=== PATIENT | male | born 1970 | race African-American/Black ===

== ENCOUNTER 2019-02-27 11:48 | Inpatient (IN) | payer MEDICAID ==
[~2019-02-27] VITALS: Ht 203.2 cm; Wt 117.9 kg
--- NOTE | 2019-02-27 12:24 | Emergency Room Report ---
History of Present Illness General Chief Complaint: Skin Rash/Abscess Source: Patient Present Illness HPI 48-year-old male presents to the emergency c/o progressive ulceration with 8/10 in severity pain of the left calf x 2 months. pt. reports increased erythema, warmth, and oozing x 2 weeks. he reports chills x 2 days denies measured fevers. 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 Denies hx of immune compromise. He reports having similar wound of lesser extent in the past which required specialized treatment at a amputation prevention center. He reports previous wound was in the same location. Denies trauma or fall. Denies recent travel. He has been only applying Neosporin without relief. He went to his PCP for eval and was sent to ED. Has not been on any oral abx. NO modifying factors at this time. Pt. is ambulatory. Allergies: Coded Allergies: No Known Allergies (Unverified , 02/27/19) Patient History Past Medical History: see triage record Past Surgical History: none Pertinent Family History: none Reviewed Nursing Documentation: PMH: Agreed; PSxH: Agreed Nursing Documentation-PMH Past Medical History: No History, Except For Review of Systems All Other Systems: negative except mentioned in HPI Physical Exam Vital Signs Date Time Temp Pulse Resp B/P (MAP) Pulse Ox O2 Delivery O2 Flow Rate FiO2 02/27/19 12:01 98.2 89 16 128/84 (99) 96 Room Air Sp02 EP Interpretation: reviewed, normal General Appearance: no apparent distress, alert, GCS 15, non-toxic Head: normocephalic, atraumatic Eyes: bilateral eye normal inspection, bilateral eye PERRL ENT: hearing grossly normal, normal voice Neck: full range of motion Respiratory: lungs clear, normal breath sounds, speaking full sentences Cardiovascular #1: regular rate, rhythm, edema - bilateral calves Gastrointestinal: normal bowel sounds, non tender, soft Rectal: deferred Genitourinary: normal inspection Musculoskeletal: back normal, gait/station normal, normal range of motion, tender - TTP LLE, ulcerated wound with purulent d/c and crusting noted on the medial left calf. 3in X 2 in in size Neurologic: alert, oriented x3, responsive, motor strength/tone normal, sensory intact, speech normal, grossly normal Psychiatric: judgement/insight normal Skin: no rash, warm/dry, well hydrated, other - ulcerated wound with purulent d /c and crusting noted on the medial left calf. 3in X 2 in in size. Surrounding erythema and warmth as well. Lymphatic: no adenopathy Medical Decision Making PA Attestation Dr. Boone is my supervising physician whom pt. management has been discussed with. Diagnostic Impression: Primary Impression: Cellulitis Qualified Codes: L03.90 - Cellulitis, unspecified ER Course 48-year-old male presents to the emergency c/o progressive ulceration with 8/10 in severity pain of the left calf x 2 months. pt. reports increased erythema, warmth, and oozing x 2 weeks. he reports chills x 2 days denies measured fevers. 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 Denies hx of immune compromise. He reports having similar wound of lesser extent in the past which required specialized treatment at a amputation prevention center. He reports previous wound was in the same location. Denies trauma or fall. Denies recent travel. He has been only applying Neosporin without relief. He went to his PCP for eval. and was sent to ED. Has not been on any oral abx. NO modifying factors at this time. Pt. is ambulatory. Ddx considered but are not limited to cellulitis, necrotizing fasciitis, Pseudomonal infection, osteomyelitis, fracture, d/L, venous stasis ulcer just to name a few. Vital signs: are WNL, pt. is afebrile H&PE are most consistent with progressive and extensive LE ulcer with secondary cellulitis and suspicion for pseudomonas presence. ORDERS: -CBC:unremarkable -CMP:unremarkable -Lactic Acid:WNL -Blood Cultures: Pending -Wound Culture: Pending -X-ray Tib/Fib:NO SubQ Gas noted. ED INTERVENTIONS: -1 liter NS bolus - 1.75gm Vancomycin IV - Zosyn IV DISPOSITION: at this time pt. will be admitted to Dr. Apple for cellulitis and ulcerative wound of the LLE Dr. Apple agreed to admit the pt. and to continue pt. care management. Labs Test 02/27/19 12:40 White Blood Count 7.0 K/UL (4.8-10.8) Red Blood Count 5.17 M/UL (4.70-6.10) Hemoglobin 14.2 G/DL (14.2-18.0) Hematocrit 44.2 % (42.0-52.0) Mean Corpuscular Volume 86 FL (80-99) Mean Corpuscular Hemoglobin 27.5 PG (27.0-31.0) Mean Corpuscular Hemoglobin Concent 32.1 G/DL (32.0-36.0) Red Cell Distribution Width 12.4 % (11.6-14.8) Platelet Count 285 K/UL (150-450) Mean Platelet Volume 7.6 FL (6.5-10.1) Neutrophils (%) (Auto) 54.0 % (45.0-75.0) Lymphocytes (%) (Auto) 29.8 % (20.0-45.0) Monocytes (%) (Auto) 8.3 % (1.0-10.0) Eosinophils (%) (Auto) 6.8 % (0.0-3.0) Basophils (%) (Auto) 1.2 % (0.0-2.0) Sodium Level 139 MMOL/L (136-145) Potassium Level 4.7 MMOL/L (3.5-5.1) Chloride Level 103 MMOL/L (98-107) Carbon Dioxide Level 30 MMOL/L (21-32) Anion Gap 7 mmol/L (5-15) Blood Urea Nitrogen 17 mg/dL (7-18) Creatinine 1.4 MG/DL (0.55-1.30) Estimat Glomerular Filtration Rate > 60 mL/min (>60) Glucose Level 113 MG/DL (74-106) Lactic Acid Level 0.80 mmol/L (0.4-2.0) Calcium Level 9.2 MG/DL (8.5-10.1) Total Bilirubin 0.6 MG/DL (0.2-1.0) Aspartate Amino Transf (AST/SGOT) 21 U/L (15-37) Alanine Aminotransferase (ALT/SGPT) 23 U/L (12-78) Alkaline Phosphatase 89 U/L (46-116) Total Protein 8.4 G/DL (6.4-8.2) Albumin 4.1 G/DL (3.4-5.0) Globulin 4.3 g/dL Albumin/Globulin Ratio 1.0 (1.0-2.7) Other X-Ray Diagnostic Results Other X-Ray Diagnostic Results : X-Ray ordered: Left Tib/Fib # of Views/Limited Vs Complete: 2 View Indication: Pain EP Interpretation: Yes PA Xray: Interpretation reviewed, by supervising MD, and agrees with findings. Interpretation: no dislocation, no soft tissue swelling, no fractures, other - no SubQ gas Impression: No acute disease Electronically Signed by: Montserrat Campbell PA-C Last Vital Signs Date Time Temp Pulse Resp B/P (MAP) Pulse Ox O2 Delivery O2 Flow Rate FiO2 02/27/19 12:01 98.2 89 16 128/84 (99) 96 Room Air Status: unchanged Disposition: ADMITTED INPATIENT Condition: Serious Montserrat Campbell Feb 27, 2019 12:24
[2019-02-27] MEDS ORDERED: Vancomycin 1.5 GM in NS 275 ML IVPB ONE (12:30)
[2019-02-27] MEDS ORDERED: Piperacillin/Tazobactam 3.375 GM in NS 110 ML IVPB ONE (12:30)
--- NOTE | 2019-02-27 12:30 | NUR ---
came to er complaints of infection on left lower leg x 2 months denies any injury . iv started in right hand venous blood send to lab
[2019-02-27 13:02] VITALS: BP 130/80
[2019-02-27 13:05] LABS: BASOPHILS % (AUTO) 1.2 % (0.0-2.0); EOSINOPHILS % (AUTO) 6.8 % (0.0-3.0); HEMATOCRIT 44.2 % (42.0-52.0); HEMOGLOBIN 14.2 G/DL (14.2-18.0); LYMPHOCYTES % (AUTO) 29.8 % (20.0-45.0); MEAN CORPUSCULAR VOLUME 86 FL (80-99); MONOCYTES % (AUTO) 8.3 % (1.0-10.0); PLATELET COUNT 285 K/UL (150-450); RED BLOOD COUNT 5.17 M/UL (4.70-6.10); RED CELL DISTRIBUTION WIDTH 12.4 % (11.6-14.8)
[2019-02-27 13:23] LABS: ANION GAP 7 mmol/L (5-15); BLOOD UREA NITROGEN 17 mg/dL (7-18); CALCIUM 9.2 MG/DL (8.5-10.1); CARBON DIOXIDE 30 MMOL/L (21-32); CHLORIDE 103 MMOL/L (98-107); CREATININE 1.4 MG/DL (0.55-1.30); POTASSIUM 4.7 MMOL/L (3.5-5.1); SODIUM 139 MMOL/L (136-145)
[2019-02-27 13:28] LABS: ALANINE AMINOTRANSFERASE 23 U/L (12-78); ALBUMIN 4.1 G/DL (3.4-5.0); ALKALINE PHOSPHATASE 89 U/L (46-116); ASPARTATE AMINO TRANSFERASE 21 U/L (15-37); BILIRUBIN,TOTAL 0.6 MG/DL (0.2-1.0)
--- NOTE | 2019-02-27 13:36 | NUR ---
ED Nurse Note: pt moved from RME to bed 4 . spoke with casework specialist from [facility]. awaiting doctor to doctor. will monitor.
--- NOTE | 2019-02-27 14:07 | Diagnostic Imaging Report ---
Indication: Leg pain Technique: XRAY Leg Lower Tib Fib 2v L Comparison: None FINDINGS/IMPRESSION: Bone mineralization within normal limits. No acute fracture identified. Partially imaged knee and ankle joints are maintained. There are degenerative changes of the knee joint with small osteophytes. No significant suprapatellar joint effusion. No radiopaque foreign body. Questioned soft tissue irregularity involving the medial leg. Correlation with physical exam recommended.
[2019-02-27 15:00] VITALS: BP 141/92
[2019-02-27] MEDS ORDERED: Nitroglycerin Subl 0.4mg tab SL PRN (16:00)
[2019-02-27] MEDS ORDERED: Miralax 17gm pkt ORAL PRN (16:00)
[2019-02-27] MEDS ORDERED: Albuterol/Ipratropium 3ml neb HHN PRN (16:00)
[2019-02-27 17:00] VITALS: BP 145/97
[2019-02-27] MEDS ORDERED: AMBIEN10 M1 ORAL (17:15)
[2019-02-27] MEDS ORDERED: LISINOPRIL2.5 MG ORAL (17:15)
[2019-02-27] MEDS ORDERED: HALOPERIDOL1 MG ORAL (17:15)
[2019-02-27] MEDS ORDERED: FAMOTIDINE20 MG ORAL (17:15)
[2019-02-27] MEDS ORDERED: ATORVASTATIN CA20 MG ORAL (17:15)
[2019-02-27] MEDS ORDERED: MIRTAZAPINE15 MG ORAL (17:15)
[2019-02-27 18:45] VITALS: BP 157/106
--- NOTE | 2019-02-27 19:18 | NUR ---
NURSE NOTES: Received pt from HOSPITAL PERSONNEL DIRECTORMAGDALENA RODRIGUEZ at 1845. Pt is alert and orient x4. pt is in RA, no SOB or acute respiratory distress noted. pt has intact iv access RAC 22G SL. Pt has wound on L LEG. pt is in pain 5/10 and refuses any pain meds at this moment. all belongings checked with pt. all needs attended, bed is locked and is in the lowest position. call light within easy reach. will continue to monitor. Report given to MAGDALENA NO to do ADMISSION and do body check.
[2019-02-27 20:00] VITALS: BP 169/96
[2019-02-27] MEDS: Morphine Sulfate 2mg/ml Inj(IV/IM USE ONLY) IVP PRN (20:24)
[2019-02-27] MEDS: Heparin 5000 units/ml inj SUBQ SCH (20:28)
--- NOTE | 2019-02-27 20:45 | NUR ---
NURSE NOTES: PATIENT IN BED, AWAKE, ALERT, VERBALLY RESPONSIVE. IV IN PLACE PATENT. SKIN ASSESSMENT DONE, OPEN WOUND ON LEFT LEG, WCP TAKEN, AND DRESSING DONE. NO S/S DISTRESS NOTED. BED IN LOWEST POSITION, CALL LIGHT WITHIN REACH, WILL CONTINUE TO MONITOR.
[2019-02-27 21:00] VITALS: BP 143/88
[2019-02-27] MEDS: Cefepime HCl 2 GM in D5W 110 ML IV SCH (21:18)
--- NOTE | 2019-02-27 21:48 | NUR ---
NURSE NOTES: CLARIFIED WITH DR. WOO REGARDING STAT VENOUS DUPLEX ORDER, STATED ORDER DOES NOT NEED TO BE STAT. ORDER CHANGED TO ROUTINE INSTEAD. CHARGE NURSE AWARE.
--- NOTE | 2019-02-27 22:16 | NUR ---
NURSE NOTES: PATIENT PUT KEYS AND WALLET - $15 [employer], ID, SS CARD, AND VISA CARD IN [facility]OSPITAL SAFE. WITNESSED BY IGOR, DIGITAL ACCOUNT MANAGER AND SECURITY.
[2019-02-27] MEDS: Vancomycin 1 GM in D5W 275 ML IVPB SCH (22:30)
[2019-02-28 00:19] VITALS: BP 129/92
[2019-02-28] MEDS: Morphine Sulfate 2mg/ml Inj(IV/IM USE ONLY) IVP PRN (02:38)
[2019-02-28 04:51] VITALS: BP 139/91
[2019-02-28] MEDS: Vancomycin 1 GM in D5W 275 ML IVPB SCH ×3 (05:56→21:58)
[2019-02-28 06:46] LABS: BASOPHILS % (AUTO) 1.2 % (0.0-2.0); EOSINOPHILS % (AUTO) 7.8 % (0.0-3.0); HEMATOCRIT 40.3 % (42.0-52.0); HEMOGLOBIN 12.9 G/DL (14.2-18.0); LYMPHOCYTES % (AUTO) 37.6 % (20.0-45.0); MEAN CORPUSCULAR VOLUME 86 FL (80-99); MONOCYTES % (AUTO) 9.1 % (1.0-10.0); NEUTROPHILS % (AUTO) 44.4 % (45.0-75.0); PLATELET COUNT 252 K/UL (150-450); RED BLOOD COUNT 4.68 M/UL (4.70-6.10); RED CELL DISTRIBUTION WIDTH 12.8 % (11.6-14.8); WHITE BLOOD COUNT 5.1 K/UL (4.8-10.8)
--- NOTE | 2019-02-28 07:21 | NUR ---
HAND-OFF: Report given to THERON HOUSTON RN.
--- NOTE | 2019-02-28 07:22 | NUR ---
NURSE NOTES: Patient received resting in bed, watching television. Alert and oriented, responds appropriately. Breathing on room air. Denies pain or SOB at this time. IV site noted on right arm. Bed in lowest position, call light placed within reach. Will continue to monitor.
[2019-02-28 07:47] LABS: ALANINE AMINOTRANSFERASE 21 U/L (12-78); ALBUMIN 3.5 G/DL (3.4-5.0); ALBUMIN/GLOBULIN RATIO 0.9 (1.0-2.7); ALKALINE PHOSPHATASE 74 U/L (46-116); ANION GAP 6 mmol/L (5-15); ASPARTATE AMINO TRANSFERASE 20 U/L (15-37); BILIRUBIN,TOTAL 0.4 MG/DL (0.2-1.0); BLOOD UREA NITROGEN 15 mg/dL (7-18); CALCIUM 8.7 MG/DL (8.5-10.1); CARBON DIOXIDE 28 MMOL/L (21-32); CHLORIDE 106 MMOL/L (98-107); CREATININE 1.5 MG/DL (0.55-1.30); POTASSIUM 4.3 MMOL/L (3.5-5.1); SODIUM 140 MMOL/L (136-145)
[2019-02-28 08:00] VITALS: BP 150/95
[2019-02-28] MEDS: Cefepime HCl 2 GM in D5W 110 ML IV SCH ×2 (08:41→20:33)
[2019-02-28] MEDS: Heparin 5000 units/ml inj SUBQ SCH ×2 (08:58→20:32)
--- NOTE | 2019-02-28 11:35 | Consultation ---
History of Present Illness General Date patient seen: Feb 28, 2019 Chief Complaint: Skin Rash/Abscess Present Illness HPI 48 y/o M with hx of b/l DVT of LE on Xarelto presents to ED on 02/27 Left calf pain and worsening ulcer for 2months. Patient had increased erythema, warmth and oozing for 2 weeks. +Chills. Denied trauma/fall, recent travel. Allergies: Coded Allergies: No Known Allergies (Unverified , 02/27/19) Medication History Scheduled Atorvastatin Calcium* (Atorvastatin Calcium*), 20 MG ORAL BEDTIME, (Reported) Famotidine (Famotidine), 20 MG ORAL DAILY, (Reported) Haloperidol* (Haldol*), 5 MG ORAL DAILY, (Reported) Lisinopril* (Lisinopril*), 5 MG ORAL DAILY, (Reported) Mirtazapine* (Remeron*), 15 MG ORAL BEDTIME, (Reported) Scheduled PRN Zolpidem Tartrate* (Ambien*), 10 MG ORAL HS PRN for Insomnia, (Reported) Patient History Healthcare decision maker Resuscitation status Advanced Directive on File Patient History Narrative Pmhx: as above Shx: reviewed Fhx: non contributory Physical Exam Physical Exam Narrative General Appearance: no apparent distress, alert, GCS 15, non-toxic Head: normocephalic, atraumatic Eyes: bilateral eye normal inspection, bilateral eye PERRL ENT: hearing grossly normal, normal voice Neck: full range of motion Respiratory: lungs clear, normal breath sounds, speaking full sentences Cardiovascular: regular rate, rhythm, edema - bilateral calves Gastrointestinal: normal bowel sounds, non tender, soft Rectal: deferred Genitourinary: normal inspection Musculoskeletal: back normal, gait/station normal, normal range of motion, tender - TTP LLE, ulcerated wound with purulent d/c and crusting noted on the medial left calf. 3in X 2 in in size Neurologic: alert, oriented x3, responsive, motor strength/tone normal, sensory intact, speech normal, grossly normal Psychiatric: judgement/insight normal Skin: no rash, warm/dry, well hydrated, other - ulcerated wound with purulent d /c and crusting noted on the medial left calf. 3in X 2 in in size. Surrounding erythema and warmth as well. Lymphatic: no adenopathy Last 24 Hour Vital Signs Date Time Temp Pulse Resp B/P (MAP) Pulse Ox O2 Delivery O2 Flow Rate FiO2 02/28/19 09:00 Room Air 02/28/19 08:05 72 18 97 Room Air 21 02/28/19 08:00 98.7 84 20 150/95 (113) 99 02/28/19 04:51 98.1 59 18 139/91 (107) 97 02/28/19 03:08 98.2 02/28/19 00:19 98.2 66 19 129/92 (104) 96 02/27/19 23:31 Room Air 02/27/19 21:00 143/88 (106) 02/27/19 20:00 98.2 70 19 169/96 (120) 96 02/27/19 18:45 98.0 70 19 157/106 (123) 94 02/27/19 18:29 76 16 145/97 100 Room Air 02/27/19 17:00 76 16 145/97 97 Room Air 02/27/19 15:00 98.0 86 16 141/92 97 Room Air 02/27/19 13:02 98.0 78 16 130/80 98 Room Air 02/27/19 12:01 98.2 89 16 128/84 (99) 96 Room Air Intake and Output 02/27/19 02/28/19 19:00 07:00 Intake Total 1370 ml 635.0 ml Balance 1370 ml 635.0 ml Intake Oral 120 ml 250 ml IV Total 1250 ml 385.0 ml # Voids 1 Laboratory Tests Test 02/27/19 12:40 02/28/19 05:40 White Blood Count 7.0 K/UL (4.8-10.8) 5.1 K/UL (4.8-10.8) Red Blood Count 5.17 M/UL (4.70-6.10) 4.68 M/UL (4.70-6.10) L Hemoglobin 14.2 G/DL (14.2-18.0) 12.9 G/DL (14.2-18.0) L Hematocrit 44.2 % (42.0-52.0) 40.3 % (42.0-52.0) L Mean Corpuscular Volume 86 FL (80-99) 86 FL (80-99) Mean Corpuscular Hemoglobin 27.5 PG (27.0-31.0) 27.6 PG (27.0-31.0) Mean Corpuscular Hemoglobin Concent 32.1 G/DL (32.0-36.0) 32.1 G/DL (32.0-36.0) Red Cell Distribution Width 12.4 % (11.6-14.8) 12.8 % (11.6-14.8) Platelet Count 285 K/UL (150-450) 252 K/UL (150-450) Mean Platelet Volume 7.6 FL (6.5-10.1) 7.3 FL (6.5-10.1) Neutrophils (%) (Auto) 54.0 % (45.0-75.0) 44.4 % (45.0-75.0) L Lymphocytes (%) (Auto) 29.8 % (20.0-45.0) 37.6 % (20.0-45.0) Monocytes (%) (Auto) 8.3 % (1.0-10.0) 9.1 % (1.0-10.0) Eosinophils (%) (Auto) 6.8 % (0.0-3.0) H 7.8 % (0.0-3.0) H Basophils (%) (Auto) 1.2 % (0.0-2.0) 1.2 % (0.0-2.0) Sodium Level 139 MMOL/L (136-145) 140 MMOL/L (136-145) Potassium Level 4.7 MMOL/L (3.5-5.1) 4.3 MMOL/L (3.5-5.1) Chloride Level 103 MMOL/L (98-107) 106 MMOL/L (98-107) Carbon Dioxide Level 30 MMOL/L (21-32) 28 MMOL/L (21-32) Anion Gap 7 mmol/L (5-15) 6 mmol/L (5-15) Blood Urea Nitrogen 17 mg/dL (7-18) 15 mg/dL (7-18) Creatinine 1.4 MG/DL (0.55-1.30) H 1.5 MG/DL (0.55-1.30) H Estimat Glomerular Filtration Rate > 60 mL/min (>60) > 60 mL/min (>60) Glucose Level 113 MG/DL (74-106) H 111 MG/DL (74-106) H Lactic Acid Level 0.80 mmol/L (0.4-2.0) Calcium Level 9.2 MG/DL (8.5-10.1) 8.7 MG/DL (8.5-10.1) Total Bilirubin 0.6 MG/DL (0.2-1.0) 0.4 MG/DL (0.2-1.0) Aspartate Amino Transf (AST/SGOT) 21 U/L (15-37) 20 U/L (15-37) Alanine Aminotransferase (ALT/SGPT) 23 U/L (12-78) 21 U/L (12-78) Alkaline Phosphatase 89 U/L (46-116) 74 U/L (46-116) Total Protein 8.4 G/DL (6.4-8.2) H 7.3 G/DL (6.4-8.2) Albumin 4.1 G/DL (3.4-5.0) 3.5 G/DL (3.4-5.0) Globulin 4.3 g/dL 3.8 g/dL Albumin/Globulin Ratio 1.0 (1.0-2.7) 0.9 (1.0-2.7) L Microbiology Date/Time Source Procedure Growth Status 02/27/19 15:00 Wound Gram Stain - Final Resulted 02/27/19 15:00 Wound Culture - Preliminary Gram Negative Brennen Resulted Height (Feet): 6 Height (Inches): 8.00 Weight (Pounds): 260 Medications Current Medications Medications (Trade) Dose Ordered Sig/Perfecto Route PRN Reason Start Time Stop Time Status Last Admin Dose Admin Acetaminophen (Tylenol) 650 mg Q4H PRN ORAL fever 02/27/19 16:00 03/29/19 15:59 Albuterol/ Ipratropium (Albuterol/ Ipratropium) 3 ml Q4H PRN HHN Shortness of Breath 02/27/19 16:00 03/04/19 15:59 Cefepime HCl 2 gm/ Dextrose 110 ml @ 220 mls/hr EVERY 12 HOURS IV 02/27/19 21:00 03/06/19 20:59 02/28/19 08:41 Dextrose (Dextrose 50%) 25 ml Q30M PRN IV Hypoglycemia 02/27/19 16:00 03/29/19 15:59 Dextrose (Dextrose 50%) 50 ml Q30M PRN IV Hypoglycemia 02/27/19 16:00 03/29/19 15:59 Heparin Sodium (Porcine) (Heparin 5000 units/ml) 5,000 units EVERY 12 HOURS SUBQ 02/27/19 21:00 03/29/19 20:59 02/28/19 08:58 Morphine Sulfate (Morphine Sulfate) 2 mg Q4H PRN IVP Moderate Pain (Pain Scale 4-6) 02/27/19 16:00 03/06/19 15:59 02/28/19 02:38 Nitroglycerin (Ntg) 0.4 mg Q5M PRN SL Prn Chest Pain 02/27/19 16:00 03/29/19 15:59 Ondansetron HCl (Zofran) 4 mg Q6H PRN IVP Nausea & Vomiting 02/27/19 16:00 03/29/19 15:59 Polyethylene Glycol (Miralax) 17 gm DAILYPRN PRN ORAL Constipation 02/27/19 16:00 03/29/19 15:59 Temazepam (Restoril) 15 mg HSPRN PRN ORAL Insomnia 02/27/19 16:00 03/06/19 15:59 Vancomycin HCl (Vanco rx to dose) 1 ea DAILY PRN MISC . 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 No acute fracture identified. Partially imaged knee and ankle joints are maintained. There are degenerative changes of the knee joint with small osteophytes. No significant suprapatellar joint effusion. No radiopaque foreign body. Questioned soft tissue irregularity involving the medial leg. Correlation with physical exam recommended. Afebrile No leukocytosis b/l DVT of LE on Xarelto Plan: -Continue IV Vancomycin and Cefepime #2 -expect switching to PO upon discharge -f/u cx -Monitor CBC/CMP, temperatures -wound care Thank you for this consultation. Will continue to follow along with you. Discussed with MAGDALENA. Sofia Eugene M.D. Feb 28, 2019 11:35
[2019-02-28 12:00] VITALS: BP 133/94
--- NOTE | 2019-02-28 13:00 | History and Physical Report ---
DATE OF ADMISSION: 02/27/2019 DATE AND TIME SEEN: 02/28/2019 at 9 a.m. CONSULTANTS: 1. Rocky Stafford M.D. 2. Jem Lake M.D. 3. Frank Ch M.D. CHIEF COMPLAINT: Left leg cellulitis and ulcer. BRIEF HISTORY: This is a 48-year-old male, who lives at home, presents with left leg cellulitis and ulcer; he had two months ago and never healed. The patient came to [place], diagnosed with the above, and admitted to medical floor for further treatment. Currently, calm in bed. No complaint. No chest pain. No shortness of breath. No nausea, vomiting, or diarrhea. PAST MEDICAL HISTORY: Nothing. PAST SURGICAL HISTORY: Nothing. MEDICATIONS: Include vancomycin, heparin, cefepime, nitroglycerin, Zofran, morphine, and albuterol. ALLERGIES: Denies. SOCIAL HISTORY: No smoking. Occasional alcohol. No intravenous drug use. FAMILY HISTORY: Noncontributory. PHYSICAL EXAMINATION: GENERAL: Calm in bed, oriented x3, no acute distress. VITAL SIGNS: Temperature is 98 degrees, pulse 84, respirations 20, blood pressure 150/95. CARDIOVASCULAR: No murmur. LUNGS: Distant and clear. ABDOMEN: Bowel sounds positive. Nontender. Nondistended. EXTREMITIES: No cyanosis, clubbing, or edema. NEUROLOGIC: The patient moves all extremities, slightly weak. In the left medial ankle area, there is a 1 inch x 1 inch open wound draining slightly erythema around about 0.5 inch. LABORATORY AND DIAGNOSTIC DATA: Labs at this time show hemoglobin 12.9, otherwise CBC is normal. Glucose 111, creatinine 1.5, otherwise BMP is normal. ASSESSMENT: 1. Left leg cellulitis/ulcer. 2. Anemia. PLAN: 1. Wound care, antibiotics per Infectious Disease. 2. Pain control. 3. Dietary followup. 4. CBC and BMP in the morning. Aleksandr Apple D.O. DR: PEDRO JOB#: [id number] CC:
--- NOTE | 2019-02-28 13:48 | Consultation ---
History of Present Illness General Date patient seen: Feb 28, 2019 Reason for Hospitalization: Skin Rash/Abscess Present Illness HPI This is a very pleasant 48-year-old male who presented to [facility] complaining of worsening left lower extremity ulcer with drainage pain and foul odor. Patient states that approximately 2 months ago or so he developed a small ulcer in the area and is progressively worse. He is not treated the wound himself and has not followed up with physician or care team for evaluation and care. He states recently is been causing more discomfort and he is noted necrotic sloth so he felt uncomfortable and came in for evaluation. No nausea vomiting fever chills. Labs okay. Otherwise well. Surgery called to evaluate and assist with care. Denies any trauma to the area. Allergies: Coded Allergies: No Known Allergies (Unverified , 02/27/19) Medication History Scheduled Atorvastatin Calcium* (Atorvastatin Calcium*), 20 MG ORAL BEDTIME, (Reported) Famotidine (Famotidine), 20 MG ORAL DAILY, (Reported) Haloperidol* (Haldol*), 5 MG ORAL DAILY, (Reported) Lisinopril* (Lisinopril*), 5 MG ORAL DAILY, (Reported) Mirtazapine* (Remeron*), 15 MG ORAL BEDTIME, (Reported) Scheduled PRN Zolpidem Tartrate* (Ambien*), 10 MG ORAL HS PRN for Insomnia, (Reported) Patient History History Provided By: Patient, Medical Record, PMD Healthcare decision maker Resuscitation status Advanced Directive on File Past Medical/Surgical History Past Medical/Surgical History: (1) Cellulitis Review of Systems Review of Symptoms General ROS: no weight loss or fever Psychological ROS: no depression or mood changes, no memory loss Ophthalmic ROS: no visual changes or eye irritation ENT ROS: no nasal congestion, hearing loss, dizziness Allergy and Immunology ROS: no allergic symptoms or urticaria Hematological and Lymphatic ROS: no swollen glands, unusual bleeding or bruising Endocrine ROS: no polyuria, polydipsia, weight changes, temperature intolerance Respiratory ROS: no cough, shortness of breath, or wheezing Cardiovascular ROS: no chest pain or dyspnea on exertion Gastrointestinal ROS: denies abdominal pain, no bright red blood in stool. Musculoskeletal ROS: no myalgias or arthralgias Neurological ROS: no TIA or stroke symptoms Dermatological ROS: no new or changing skin lesions, rashes or pruritis Physical Exam Physical Exam General appearance: alert, cooperative, no distress, appears stated age Head: Normocephalic, without obvious abnormality, atraumatic Eyes: conjunctivae/corneas clear. PERRL, EOM's intact. Fundi benign Throat: Lips, mucosa, and tongue normal. Teeth and gums normal Neck: supple, symmetrical, trachea midline, no adenopathy, thyroid: not enlarged, symmetric, no tenderness/mass/nodules, no carotid bruit and no JVD Lungs: clear to auscultation bilaterally Heart: regular rate and rhythm, S1, S2 normal, no murmur, click, rub or gallop Abdomen: soft, non-tender. Bowel sounds normal. No masses, no organomegaly Extremities: extremities normal, atraumatic, no cyanosis or edema see below Pulses: 2+ and symmetric Skin: Skin color, texture, turgor normal. No rashes or lesions Neurologic: Grossly normal Last 24 Hour Vital Signs Date Time Temp Pulse Resp B/P (MAP) Pulse Ox O2 Delivery O2 Flow Rate FiO2 02/28/19 12:00 98.2 73 20 133/94 (107) 99 02/28/19 09:00 Room Air 02/28/19 08:05 72 18 97 Room Air 21 02/28/19 08:00 98.7 84 20 150/95 (113) 99 02/28/19 04:51 98.1 59 18 139/91 (107) 97 02/28/19 03:08 98.2 02/28/19 00:19 98.2 66 19 129/92 (104) 96 02/27/19 23:31 Room Air 02/27/19 21:00 143/88 (106) 02/27/19 20:00 98.2 70 19 169/96 (120) 96 02/27/19 18:45 98.0 70 19 157/106 (123) 94 02/27/19 18:29 76 16 145/97 100 Room Air 02/27/19 17:00 76 16 145/97 97 Room Air 02/27/19 15:00 98.0 86 16 141/92 97 Room Air Intake and Output 02/27/19 02/28/19 19:00 07:00 Intake Total 1370 ml 635.0 ml Balance 1370 ml 635.0 ml Intake Oral 120 ml 250 ml IV Total 1250 ml 385.0 ml # Voids 1 Laboratory Tests Test 02/28/19 05:40 02/28/19 13:02 White Blood Count 5.1 K/UL (4.8-10.8) Red Blood Count 4.68 M/UL (4.70-6.10) L Hemoglobin 12.9 G/DL (14.2-18.0) L Hematocrit 40.3 % (42.0-52.0) L Mean Corpuscular Volume 86 FL (80-99) Mean Corpuscular Hemoglobin 27.6 PG (27.0-31.0) Mean Corpuscular Hemoglobin Concent 32.1 G/DL (32.0-36.0) Red Cell Distribution Width 12.8 % (11.6-14.8) Platelet Count 252 K/UL (150-450) Mean Platelet Volume 7.3 FL (6.5-10.1) Neutrophils (%) (Auto) 44.4 % (45.0-75.0) L Lymphocytes (%) (Auto) 37.6 % (20.0-45.0) Monocytes (%) (Auto) 9.1 % (1.0-10.0) Eosinophils (%) (Auto) 7.8 % (0.0-3.0) H Basophils (%) (Auto) 1.2 % (0.0-2.0) Sodium Level 140 MMOL/L (136-145) Potassium Level 4.3 MMOL/L (3.5-5.1) Chloride Level 106 MMOL/L (98-107) Carbon Dioxide Level 28 MMOL/L (21-32) Anion Gap 6 mmol/L (5-15) Blood Urea Nitrogen 15 mg/dL (7-18) Creatinine 1.5 MG/DL (0.55-1.30) H Estimat Glomerular Filtration Rate > 60 mL/min (>60) Glucose Level 111 MG/DL (74-106) H Calcium Level 8.7 MG/DL (8.5-10.1) Total Bilirubin 0.4 MG/DL (0.2-1.0) Aspartate Amino Transf (AST/SGOT) 20 U/L (15-37) Alanine Aminotransferase (ALT/SGPT) 21 U/L (12-78) Alkaline Phosphatase 74 U/L (46-116) Total Protein 7.3 G/DL (6.4-8.2) Albumin 3.5 G/DL (3.4-5.0) Globulin 3.8 g/dL Albumin/Globulin Ratio 0.9 (1.0-2.7) L Vancomycin Level Trough 13.6 ug/mL (5.0-12.0) H Microbiology Date/Time Source Procedure Growth Status 02/27/19 15:00 Wound Gram Stain - Final Resulted 02/27/19 15:00 Wound Culture - Preliminary Gram Negative Brennen Resulted Height (Feet): 6 Height (Inches): 8.00 Weight (Pounds): 260 Medications Current Medications Medications (Trade) Dose Ordered Sig/Perfecto Route PRN Reason Start Time Stop Time Status Last Admin Dose Admin Acetaminophen (Tylenol) 650 mg Q4H PRN ORAL fever 02/27/19 16:00 03/29/19 15:59 Albuterol/ Ipratropium (Albuterol/ Ipratropium) 3 ml Q4H PRN HHN Shortness of Breath 02/27/19 16:00 03/04/19 15:59 Cefepime HCl 2 gm/ Dextrose 110 ml @ 220 mls/hr EVERY 12 HOURS IV 02/27/19 21:00 03/06/19 20:59 02/28/19 08:41 Dextrose (Dextrose 50%) 25 ml Q30M PRN IV Hypoglycemia 02/27/19 16:00 03/29/19 15:59 Dextrose (Dextrose 50%) 50 ml Q30M PRN IV Hypoglycemia 02/27/19 16:00 03/29/19 15:59 Heparin Sodium (Porcine) (Heparin 5000 units/ml) 5,000 units EVERY 12 HOURS SUBQ 02/27/19 21:00 03/29/19 20:59 02/28/19 08:58 Morphine Sulfate (Morphine Sulfate) 2 mg Q4H PRN IVP Moderate Pain (Pain Scale 4-6) 02/27/19 16:00 03/06/19 15:59 02/28/19 02:38 Nitroglycerin (Ntg) 0.4 mg Q5M PRN SL Prn Chest Pain 02/27/19 16:00 03/29/19 15:59 Ondansetron HCl (Zofran) 4 mg Q6H PRN IVP Nausea & Vomiting 02/27/19 16:00 03/29/19 15:59 Polyethylene Glycol (Miralax) 17 gm DAILYPRN PRN ORAL Constipation 02/27/19 16:00 03/29/19 15:59 Temazepam (Restoril) 15 mg HSPRN PRN ORAL Insomnia 02/27/19 16:00 03/06/19 15:59 Vancomycin HCl (Vanco rx to dose) 1 ea DAILY PRN MISC . 02/27/19 17:45 03/29/19 17:44 Vancomycin HCl 1 gm/Dextrose 275 ml @ 183.3 mls/ hr Q8HR IVPB 02/27/19 22:00 03/04/19 21:59 02/28/19 13:26 Assessment/Plan Problem List: (1) Cellulitis Assessment & Plan: This is a 48-year-old male with a left medial distal lower extremity ulcer with cellulitis. Initially also much smaller but now presents larger with necrotic slough. Stage IV ulcer with unknown initial etiology. Foul odor. Serous drainage. No abscess or purulent drainage identified. No care has been provided to it as noted on examination. Wound was evaluated with patient at bedside. There was significant amount of necrotic slough. With patient's permission non-excisional debridement of the slough was performed with gauze. Underlying wound bed does have some viable tissue identified. There is some surrounding cellulitis. There is no pus. IV antibiotics as per infectious disease Keep affected extremity elevated Wash wound daily with soap and water We will continue non-excisional debridement with gauze given location Apply Thera honey and gauze twice daily Thank you we will follow with Feroz ICD Codes: L03.90 - Cellulitis, unspecified SNOMED: 840809424 Qualifiers: Qualified Codes: L03.90 - Cellulitis, unspecified Jem Lake Feb 28, 2019 13:48
--- NOTE | 2019-02-28 15:22 | Consultation ---
Consult Note Consult Note asked to eval for elevated Cr 8-year-old male presents to the emergency c/o progressive ulceration with 8/10 in severity pain of the left calf x 2 months. pt. reports increased erythema, warmth, and oozing x 2 weeks. he reports chills x 2 days denies measured fevers. 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 Denies hx of immune compromise. He reports having similar wound of lesser extent in the past which required specialized treatment at a amputation prevention center. He reports previous wound was in the same location. Denies trauma or fall. Denies recent travel. He has been only applying Neosporin without relief. He went to his PCP for eval and was sent to ED. Has not been on any oral abx. NO modifying factors at this time. Pt. is ambulatory. interviewed examined data reviewed . Assessment/Plan Renal failure : Dehydration ? Meds ( Lisinopril) Left leg cellulitis : Surgical note This is a 48-year-old male with a left medial distal lower extremity ulcer with cellulitis. Initially also much smaller but now presents larger with necrotic slough. Stage IV ulcer with unknown initial etiology. Foul odor. Serous drainage. No abscess or purulent drainage identified. No care has been provided to it as noted on examination. Wound was evaluated with patient at bedside. There was significant amount of necrotic slough. With patient's permission non-excisional debridement of the slough was performed with gauze. Underlying wound bed does have some viable tissue identified. There is some surrounding cellulitis. There is no pus. Suggestion Urine studies hydrate avoid nephrotoxics monitor renal parameters per orders Remy Pan MD Feb 28, 2019 15:22
[2019-02-28 15:43] VITALS: BP 161/90
--- NOTE | 2019-02-28 16:55 | NUR ---
CASE MANAGEMENT: INITIAL REVIEW 48 YO M PRESENTED TO ED FROM HOME CC: SKIN RASH PMHx: DENIES SI:CELLULITIS. T 98.2 HR 89 RR 16 B/P 128/84 SATS 96% ON RA CR 1.4 GLU 113 IS: VANCO IV X1 NS BOLUS X1 ZOSYN IV X1 PATIENT ADMITTED TO MED/SURG 02/27/2019 @ 1507 DCP:PATIENT TO BE DISCHARGED TO HOME ONCE MEDICALLY CLEARED. PLAN OF CARE: ID CONSULT WOUND CARE 02/28/2019 SI:CELLULITIS. T 99 HR 72 RR 20 B/P 161/90 SATS 100% ON RA CR 1.5 GLU 111 IS: IVF @ 100 mL/HR CEFEPIME IV Q12H FLOMAX PO QHS PROTONIX PO QD VANCO IV Q8H MED/SURG STATUS DCP:PATIENT TO BE DISCHARGED TO HOME ONCE MEDICALLY CLEARED. PLAN OF CARE: VENOUS DUPLEX WOUND CARE Addendum: 03/03/19 at 0944 by Beckie Tejeda CM INTERQUAL MET
[2019-02-28] MEDS: Docusate 100mg cap ORAL SCH (17:14)
[2019-02-28] MEDS: HydrALAZINE 25mg tab ORAL PRN (17:14)
--- NOTE | 2019-02-28 19:21 | NUR ---
NURSE NOTES: PATIENT IN BED, ASLEEP, IN NO APPARENT DISTRESS. IV IN PLACE, RUNNING IV FLUIDS. NO S/S PAIN NOTED. BED IN LOWEST POSITION, CALL LIGHT WITHIN REACH, WILL CONTINUE TO MONITOR.
--- NOTE | 2019-02-28 19:34 | NUR ---
HAND-OFF: Report given to Renetta NICHOLS.
[2019-02-28 19:59] VITALS: BP 153/101
[2019-02-28] MEDS: Tamsulosin 0.4mg cap ORAL SCH (20:32)
[2019-02-28 22:35] LABS: APPEARANCE,URINE CLEAR; BILIRUBIN, URINE NEGATIVE (NEGATIVE); COLOR,URINE PALE YELLOW; GLUCOSE, URINE (UA) NEGATIVE (NEGATIVE); KETONES,URINE NEGATIVE (NEGATIVE); LEUKOCYTE ESTERASE ,URINE NEGATIVE (NEGATIVE); NITRITE,URINE NEGATIVE (NEGATIVE); PH,URINE 5 (4.5-8.0); PROTEIN,URINE NEGATIVE (NEGATIVE); UROBILINOGEN,URINE NORMAL MG/DL (0.0-1.0)
[2019-03-01 00:30] VITALS: BP 154/93
[2019-03-01 04:39] VITALS: BP 162/99
[2019-03-01] MEDS: Vancomycin 1 GM in D5W 275 ML IVPB SCH ×2 (05:09→13:23)
[2019-03-01] MEDS: HydrALAZINE 25mg tab ORAL PRN (05:09)
--- NOTE | 2019-03-01 06:30 | NUR ---
NURSE NOTES: CHANGED WOUND DRESSING ON LEFT LEG. PATIENT TOLERATED PROCEDURE.
--- NOTE | 2019-03-01 07:20 | NUR ---
HAND-OFF: Report given to SUNDAY WOODARD RN.
[2019-03-01 07:27] LABS: % IRON SATURATION 42 % (15-50); IRON 83 ug/dL (50-175); TOTAL IRON BINDING CAPACITY 199 ug/dL (250-450)
[2019-03-01 07:28] LABS: BASOPHILS % (AUTO) 0.9 % (0.0-2.0); EOSINOPHILS % (AUTO) 8.5 % (0.0-3.0); HEMOGLOBIN 13.1 G/DL (14.2-18.0); LYMPHOCYTES % (AUTO) 44.4 % (20.0-45.0); MEAN CORPUSCULAR VOLUME 85 FL (80-99); MONOCYTES % (AUTO) 9.3 % (1.0-10.0); NEUTROPHILS % (AUTO) 36.9 % (45.0-75.0); PLATELET COUNT 245 K/UL (150-450); RED CELL DISTRIBUTION WIDTH 12.5 % (11.6-14.8); WHITE BLOOD COUNT 4.3 K/UL (4.8-10.8)
--- NOTE | 2019-03-01 07:36 | NUR ---
NURSE NOTES: Received repot from MAGDALENA Jackson. Pt in bed, awake, talkative, eating breakfast, no complaints of pain, no apparent distress noted, bed in lowest position, call light within reach.
--- NOTE | 2019-03-01 07:44 | General Progress Note ---
Assessment/Plan Problem List: (1) Wound of left ankle ICD Codes: S91.002A - Unspecified open wound, left ankle, initial encounter SNOMED: 961254100, [id number] (2) Cellulitis ICD Codes: L03.90 - Cellulitis, unspecified SNOMED: 127513446 Qualifiers: Qualified Codes: L03.90 - Cellulitis, unspecified Status: stable, progressing Assessment/Plan: wound care abx pain control cbc bmp am Subjective Constitutional: Reports: weakness Allergies: Coded Allergies: No Known Allergies (Unverified , 02/27/19) All Systems: reviewed and negative except above Subjective calm in bed Objective Last 24 Hour Vital Signs Date Time Temp Pulse Resp B/P (MAP) Pulse Ox O2 Delivery O2 Flow Rate FiO2 03/01/19 05:09 162/99 03/01/19 04:39 98.1 74 20 162/99 (120) 97 03/01/19 00:30 97.3 61 20 154/93 (113) 97 02/28/19 21:38 Room Air 02/28/19 21:09 78 18 98 Room Air 21 02/28/19 19:59 98.1 64 19 153/101 (118) 98 02/28/19 17:14 161/90 02/28/19 15:43 99.0 72 20 161/90 (113) 100 02/28/19 12:00 98.2 73 20 133/94 (107) 99 02/28/19 09:00 Room Air 02/28/19 08:05 72 18 97 Room Air 21 02/28/19 08:00 98.7 84 20 150/95 (113) 99 Intake and Output 02/28/19 03/01/19 19:00 07:00 Intake Total 940 ml 1160.0 ml Output Total 2400 ml Balance -1460 ml 1160.0 ml Intake Oral 840 ml IV Total 100 ml 1160.0 ml Output Urine Total 2400 ml Laboratory Tests 02/28/19 13:02: Vancomycin Level Trough 13.6H 02/28/19 22:16: Urine Color Pale yellow, Urine Appearance Clear, Urine pH 5, Urine Specific [place] 1.015, Urine Protein Negative, Urine Glucose (UA) Negative, Urine Ketones Negative, Urine Blood Negative, Urine Nitrite Negative, Urine Bilirubin Negative, Urine Urobilinogen Normal, Urine Leukocyte Esterase Negative, Urine RBC 0-2H, Urine WBC 0-2, Urine Squamous Epithelial Cells ModerateH, Urine Bacteria None 03/01/19 05:00: White Blood Count 4.3L, Red Blood Count 4.70, Hemoglobin 13.1L, Hematocrit 40.0L , Mean Corpuscular Volume 85, Mean Corpuscular Hemoglobin 27.8, Mean Corpuscular Hemoglobin Concent 32.7, Red Cell Distribution Width 12.5, Platelet Count 245, Mean Platelet Volume 7.1, Neutrophils (%) (Auto) 36.9L, Lymphocytes ( %) (Auto) 44.4, Monocytes (%) (Auto) 9.3, Eosinophils (%) (Auto) 8.5H, Basophils (%) (Auto) 0.9, Sodium Level [Pending], Potassium Level [Pending], Chloride Level [Pending], Carbon Dioxide Level [Pending], Blood Urea Nitrogen [ Pending], Creatinine [Pending], Estimat Glomerular Filtration Rate [Pending], Glucose Level [Pending], Hemoglobin A1c 7.0H, Uric Acid [Pending], Calcium Level [Pending], Phosphorus Level [Pending], Magnesium Level [Pending], Iron Level 83, Total Iron Binding Capacity 199L, Percent Iron Saturation 42, Unsaturated Iron Binding 116, Ferritin [Pending], Total Bilirubin [Pending], Gamma Glutamyl Transpeptidase [Pending], Aspartate Amino Transf (AST/SGOT) [ Pending], Alanine Aminotransferase (ALT/SGPT) [Pending], Alkaline Phosphatase [ Pending], C-Reactive Protein, Quantitative [Pending], Pro-B-Type Natriuretic Peptide [Pending], Total Protein [Pending], Albumin [Pending], Globulin [Pending ], Triglycerides Level [Pending], Cholesterol Level [Pending], LDL Cholesterol [ Pending], HDL Cholesterol [Pending], Cholesterol/HDL Ratio [Pending], Vitamin B12 Level [Pending], Folate [Pending], Thyroid Stimulating Hormone (TSH) [ Pending] Height (Feet): 6 Height (Inches): 8.00 Weight (Pounds): 260 General Appearance: lethargic EENT: normal ENT inspection Neck: normal alignment Cardiovascular: normal peripheral pulses, normal rate, regular rhythm Respiratory/Chest: chest wall non-tender, lungs clear, normal breath sounds Abdomen: normal bowel sounds, non tender, soft Extremities: normal inspection Edema: no edema noted Arm (L), no edema noted Arm (R), no edema noted Leg (L), no edema noted Leg (R), no edema noted Pedal (L), no edema noted Pedal (R), no edema noted Generalized Neurologic: responsive, motor weakness Skin: normal pigmentation, warm/dry Objective left medial ankle wound sl draining Aleksandr Apple DO Mar 01, 2019 07:44
[2019-03-01 07:56] LABS: ALANINE AMINOTRANSFERASE 21 U/L (12-78); ALBUMIN 3.1 G/DL (3.4-5.0); ALBUMIN/GLOBULIN RATIO 0.7 (1.0-2.7); ALKALINE PHOSPHATASE 71 U/L (46-116); ANION GAP 11 mmol/L (5-15); ASPARTATE AMINO TRANSFERASE 18 U/L (15-37); BILIRUBIN,TOTAL 0.6 MG/DL (0.2-1.0); BLOOD UREA NITROGEN 11 mg/dL (7-18); CALCIUM 8.8 MG/DL (8.5-10.1); CARBON DIOXIDE 25 MMOL/L (21-32); CHLORIDE 105 MMOL/L (98-107); CHOLESTEROL 104 MG/DL (< 200); CREATININE 1.3 MG/DL (0.55-1.30); FERRITIN 218 NG/ML (8-388); HDL CHOLESTEROL 30 MG/DL (40-60); POTASSIUM 4.1 MMOL/L (3.5-5.1); SODIUM 141 MMOL/L (136-145); TRIGLYCERIDES 71 MG/DL (30-150)
[2019-03-01 08:00] VITALS: BP 143/90
--- NOTE | 2019-03-01 08:19 | NUR ---
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
[2019-03-01 08:28] LABS: GAMMA GLUTAMYL TRANSPEPTIDASE 76 U/L (5-85); PHOSPHORUS 3.4 MG/DL (2.5-4.9)
[2019-03-01] MEDS: Docusate 100mg cap ORAL SCH ×2 (08:34→17:32)
[2019-03-01] MEDS: Cefepime HCl 2 GM in D5W 110 ML IV SCH ×2 (08:34→20:48)
[2019-03-01] MEDS: Heparin 5000 units/ml inj SUBQ SCH ×2 (08:36→20:56)
--- NOTE | 2019-03-01 11:24 | NUR ---
RD ASSESSMENT & RECOMMENDATIONS SEE CARE ACTIVITY FOR COMPLETE ASSESSMENT DAILY ESTIMATED NEEDS: Needs based on Wound, cardiac 105.8kg adj 25-30 kcals/kg 4402-5620 total kcals 1.25-1.5 g protein/kg 132-159 g total protein 25-30 mL/kg 9039-5255 total fluid mLs NUTRITION DIAGNOSIS: 1) Increased protein needs r/t wound healing as evidenced by pt w/ L LE stage 4 ulcer, unknown etiology per MD. 2) Altered nutrition related lab values r/t hyperglycemia, as evidenced by A1C 7.0. CURRENT DIET: Regular PO DIET RECOMMENDATIONS---> DIET CHANGE TO [facility] MED DIET + DOUBLE PROTEIN PORTIONS ------ ADDITIONAL RECOMMENDATIONS: 1) Obtain a standing scale wt as able 2) Hypoglycemics prn-> *A1C 7.0* 3) Wound care: - Add JORDON BID - Add MVI w/ min daily - Add VIT C 500mg BID daily
[2019-03-01 12:00] VITALS: BP 142/93
--- NOTE | 2019-03-01 12:49 | Surgery Progress Note ---
Surgery Progress Note Subjective Additional Comments no acute events doing well resting comfortable dressings going okay Objective Last 24 Hour Vital Signs Date Time Temp Pulse Resp B/P (MAP) Pulse Ox O2 Delivery O2 Flow Rate FiO2 03/01/19 12:00 98.2 69 17 142/93 (109) 99 03/01/19 09:00 Room Air 03/01/19 08:00 98.0 75 18 143/90 (107) 99 03/01/19 05:09 162/99 03/01/19 04:39 98.1 74 20 162/99 (120) 97 03/01/19 00:30 97.3 61 20 154/93 (113) 97 02/28/19 21:38 Room Air 02/28/19 21:09 78 18 98 Room Air 21 02/28/19 19:59 98.1 64 19 153/101 (118) 98 02/28/19 17:14 161/90 02/28/19 15:43 99.0 72 20 161/90 (113) 100 I&O Intake and Output 02/28/19 03/01/19 19:00 07:00 Intake Total 940 ml 1160.0 ml Output Total 2400 ml Balance -1460 ml 1160.0 ml Intake Oral 840 ml IV Total 100 ml 1160.0 ml Output Urine Total 2400 ml Dressing: saturated Wound: other Drains: other Cardiovascular: RSR Respiratory: decreased breath sounds Abdomen: soft, present bowel sounds Extremities: no cyanosis, other Laboratory Tests Test 02/28/19 13:02 02/28/19 22:16 03/01/19 05:00 Vancomycin Level Trough 13.6 ug/mL (5.0-12.0) H Urine Color Pale yellow Urine Appearance Clear Urine pH 5 (4.5-8.0) Urine Specific [place] 1.015 (1.005-1.035) Urine Protein Negative (NEGATIVE) Urine Glucose (UA) Negative (NEGATIVE) Urine Ketones Negative (NEGATIVE) Urine Blood Negative (NEGATIVE) Urine Nitrite Negative (NEGATIVE) Urine Bilirubin Negative (NEGATIVE) Urine Urobilinogen Normal MG/DL (0.0-1.0) Urine Leukocyte Esterase Negative (NEGATIVE) Urine RBC 0-2 /HPF (0 - 0) H Urine WBC 0-2 /HPF (0 - 0) Urine Squamous Epithelial Cells Moderate /LPF (NONE/OCC) H Urine Bacteria None /HPF (NONE) White Blood Count 4.3 K/UL (4.8-10.8) L Red Blood Count 4.70 M/UL (4.70-6.10) Hemoglobin 13.1 G/DL (14.2-18.0) L Hematocrit 40.0 % (42.0-52.0) L Mean Corpuscular Volume 85 FL (80-99) Mean Corpuscular Hemoglobin 27.8 PG (27.0-31.0) Mean Corpuscular Hemoglobin Concent 32.7 G/DL (32.0-36.0) Red Cell Distribution Width 12.5 % (11.6-14.8) Platelet Count 245 K/UL (150-450) Mean Platelet Volume 7.1 FL (6.5-10.1) Neutrophils (%) (Auto) 36.9 % (45.0-75.0) L Lymphocytes (%) (Auto) 44.4 % (20.0-45.0) Monocytes (%) (Auto) 9.3 % (1.0-10.0) Eosinophils (%) (Auto) 8.5 % (0.0-3.0) H Basophils (%) (Auto) 0.9 % (0.0-2.0) Sodium Level 141 MMOL/L (136-145) Potassium Level 4.1 MMOL/L (3.5-5.1) Chloride Level 105 MMOL/L (98-107) Carbon Dioxide Level 25 MMOL/L (21-32) Anion Gap 11 mmol/L (5-15) Blood Urea Nitrogen 11 mg/dL (7-18) Creatinine 1.3 MG/DL (0.55-1.30) Estimat Glomerular Filtration Rate > 60 mL/min (>60) Glucose Level 102 MG/DL (74-106) Hemoglobin A1c 7.0 % (4.3-6.0) H Uric Acid 6.8 MG/DL (2.6-7.2) Calcium Level 8.8 MG/DL (8.5-10.1) Phosphorus Level 3.4 MG/DL (2.5-4.9) Magnesium Level 1.9 MG/DL (1.8-2.4) Iron Level 83 ug/dL (50-175) Total Iron Binding Capacity 199 ug/dL (250-450) L Percent Iron Saturation 42 % (15-50) Unsaturated Iron Binding 116 ug/dL (112-346) Ferritin 218 NG/ML (8-388) Total Bilirubin 0.6 MG/DL (0.2-1.0) Gamma Glutamyl Transpeptidase 76 U/L (5-85) Aspartate Amino Transf (AST/SGOT) 18 U/L (15-37) Alanine Aminotransferase (ALT/SGPT) 21 U/L (12-78) Alkaline Phosphatase 71 U/L (46-116) C-Reactive Protein, Quantitative 1.7 mg/dL (0.00-0.90) H Pro-B-Type Natriuretic Peptide 52 pg/mL (0-125) Total Protein 7.3 G/DL (6.4-8.2) Albumin 3.1 G/DL (3.4-5.0) L Globulin 4.2 g/dL Albumin/Globulin Ratio 0.7 (1.0-2.7) L Triglycerides Level 71 MG/DL (30-150) Cholesterol Level 104 MG/DL (< 200) LDL Cholesterol 61 mg/dL (<100) HDL Cholesterol 30 MG/DL (40-60) L Cholesterol/HDL Ratio 3.5 (3.3-4.4) Vitamin B12 Level 386 PG/ML (193-986) Folate 7.9 NG/ML (8.6-58.9) L Thyroid Stimulating Hormone (TSH) 1.392 uiU/mL (0.358-3.740) Plan Problems: (1) Cellulitis Assessment & Plan: This is a 48-year-old male with a left medial distal lower extremity ulcer with cellulitis. Initially also much smaller but now presents larger with necrotic slough. Stage IV ulcer with unknown initial etiology. Foul odor. Serous drainage. No abscess or purulent drainage identified. No care has been provided to it as noted on examination. Wound was evaluated with patient at bedside. There was significant amount of necrotic slough. With patient's permission non-excisional debridement of the slough was performed with gauze. Underlying wound bed does have some viable tissue identified. There is some surrounding cellulitis. There is no pus. plain films with Bone mineralization within normal limits. No acute fracture identified. Partially imaged knee and ankle joints are maintained. There are degenerative changes of the knee joint with small osteophytes. No significant suprapatellar joint effusion. No radiopaque foreign body. Questioned soft tissue irregularity involving the medial leg. Correlation with physical exam recommended. IV antibiotics as per infectious disease Keep affected extremity elevated Wash wound daily with soap and water We will continue non-excisional debridement with gauze given location Apply Thera honey and gauze twice daily Thank you we will follow with Jem Schofield Mar 01, 2019 12:49
--- NOTE | 2019-03-01 14:50 | Nephrology Progress Note ---
Assessment/Plan Problem List: (1) Cellulitis (2) Wound of left ankle (3) Renal failure (ARF), acute on chronic (4) HTN (hypertension) (5) Diabetes mellitus Assessment: A1c : 7 Assessment Renal failure : Dehydration ? Meds ( Lisinopril) HTN Left leg cellulitis : Surgical note This is a 48-year-old male with a left medial distal lower extremity ulcer with cellulitis. Initially also much smaller but now presents larger with necrotic slough. Stage IV ulcer with unknown initial etiology. Foul odor. Serous drainage. No abscess or purulent drainage identified. No care has been provided to it as noted on examination. Wound was evaluated with patient at bedside. There was significant amount of necrotic slough. With patient's permission non-excisional debridement of the slough was performed with gauze. Underlying wound bed does have some viable tissue identified. There is some surrounding cellulitis. There is no pus. Plan Add procardia for high BP Add folic acid hydrated avoid nephrotoxics monitor renal parameters per orders Subjective ROS Limited/Unobtainable: No Objective Objective Last 24 Hour Vital Signs Date Time Temp Pulse Resp B/P (MAP) Pulse Ox O2 Delivery O2 Flow Rate FiO2 03/01/19 12:00 98.2 69 17 142/93 (109) 99 03/01/19 09:00 Room Air 03/01/19 08:00 98.0 75 18 143/90 (107) 99 03/01/19 05:09 162/99 03/01/19 04:39 98.1 74 20 162/99 (120) 97 03/01/19 00:30 97.3 61 20 154/93 (113) 97 02/28/19 21:38 Room Air 02/28/19 21:09 78 18 98 Room Air 21 02/28/19 19:59 98.1 64 19 153/101 (118) 98 02/28/19 17:14 161/90 02/28/19 15:43 99.0 72 20 161/90 (113) 100 Intake and Output 02/28/19 03/01/19 19:00 07:00 Intake Total 940 ml 1160.0 ml Output Total 2400 ml Balance -1460 ml 1160.0 ml Intake Oral 840 ml IV Total 100 ml 1160.0 ml Output Urine Total 2400 ml Laboratory Tests 02/28/19 22:16: Urine Color Pale yellow, Urine Appearance Clear, Urine pH 5, Urine Specific Jet 1.015, Urine Protein Negative, Urine Glucose (UA) Negative, Urine Ketones Negative, Urine Blood Negative, Urine Nitrite Negative, Urine Bilirubin Negative, Urine Urobilinogen Normal, Urine Leukocyte Esterase Negative, Urine RBC 0-2H, Urine WBC 0-2, Urine Squamous Epithelial Cells ModerateH, Urine Bacteria None 03/01/19 05:00: White Blood Count 4.3L, Red Blood Count 4.70, Hemoglobin 13.1L, Hematocrit 40.0L , Mean Corpuscular Volume 85, Mean Corpuscular Hemoglobin 27.8, Mean Corpuscular Hemoglobin Concent 32.7, Red Cell Distribution Width 12.5, Platelet Count 245, Mean Platelet Volume 7.1, Neutrophils (%) (Auto) 36.9L, Lymphocytes ( %) (Auto) 44.4, Monocytes (%) (Auto) 9.3, Eosinophils (%) (Auto) 8.5H, Basophils (%) (Auto) 0.9, Sodium Level 141, Potassium Level 4.1, Chloride Level 105, Carbon Dioxide Level 25, Anion Gap 11, Blood Urea Nitrogen 11, Creatinine 1.3, Estimat Glomerular Filtration Rate > 60, Glucose Level 102, Hemoglobin A1c 7.0H, Uric Acid 6.8, Calcium Level 8.8, Phosphorus Level 3.4, Magnesium Level 1.9, Iron Level 83, Total Iron Binding Capacity 199L, Percent Iron Saturation 42 , Unsaturated Iron Binding 116, Ferritin 218, Total Bilirubin 0.6, Gamma Glutamyl Transpeptidase 76, Aspartate Amino Transf (AST/SGOT) 18, Alanine Aminotransferase (ALT/SGPT) 21, Alkaline Phosphatase 71, C-Reactive Protein, Quantitative 1.7H, Pro-B-Type Natriuretic Peptide 52, Total Protein 7.3, Albumin 3.1L, Globulin 4.2, Albumin/Globulin Ratio 0.7L, Triglycerides Level 71 , Cholesterol Level 104, LDL Cholesterol 61, HDL Cholesterol 30L, Cholesterol/ HDL Ratio 3.5, Vitamin B12 Level 386, Folate 7.9L, Thyroid Stimulating Hormone ( TSH) 1.392 03/01/19 13:00: Vancomycin Level Trough 17.1H Height (Feet): 6 Height (Inches): 8.00 Weight (Pounds): 260 General Appearance: no apparent distress Objective no change in PE Remy Pan MD Mar 01, 2019 14:50
[2019-03-01 15:45] VITALS: BP 152/98
--- NOTE | 2019-03-01 19:21 | NUR ---
HAND-OFF: Report given to MAGDALENA Jackson and MAGDALENA Madden.
--- NOTE | 2019-03-01 19:25 | NUR ---
NURSE NOTES: Received report from MAGDALENA Anthony. Patient in the bed laying comfortably, self-positioned. Patient alert, awake, and oriented, verbally responsive to let his needs known. Patient is breathing evenly and unlabored without apparent distress, discomfort, or signs of SOB noted. No signs of pain noted at this time. Bed is placed at the lowest level with alarm and brake on. Side rails on x 2 for bed mobility assistance and safety. Call light placed within reach for any assistance needed. Will continue to monitor.
[2019-03-01 20:00] VITALS: BP 154/87
[2019-03-01] MEDS: Tamsulosin 0.4mg cap ORAL SCH (20:47)
--- NOTE | 2019-03-01 23:41 | NUR ---
NURSE NOTES: Noted that patient has been able to have a bowel movement for several days. Patient was offered PRN miralax to promote bowel movement. Explained the medication and what it does. Patient refused to take the medication. He said "I want to wait". Will continue to monitor and provide care as ordered. Call light placed within reach for any assistance needed.
[2019-03-02] VITALS: BP 148/72
[2019-03-02 04:00] VITALS: BP 144/62
[2019-03-02] MEDS ORDERED: Vancomycin 1.25gm Premix IVPB SCH (06:00)
--- NOTE | 2019-03-02 06:53 | NUR ---
NURSE NOTES: Patient's LFA 24g IV site infiltrated with warmth and puffiness. IV was removed and new IV was inserted. Explained procedure to the patient. Patient verbalized understanding. New 22g IV on the left hand. Patient, intact, dry, and clean. Good blood return and flushes well without resistance. Currently running antibiotic ordered as prescribed. Patient tolerated the procedure well. Placed iced pack on the infiltrated site. Will continue to monitor.
--- NOTE | 2019-03-02 07:30 | NUR ---
HAND-OFF: Report given to THERON HOUSTON RN.
[2019-03-02 07:32] LABS: EOSINOPHILS % (AUTO) 9.9 % (0.0-3.0); HEMATOCRIT 43.3 % (42.0-52.0); LYMPHOCYTES % (AUTO) 42.4 % (20.0-45.0); MEAN CORPUSCULAR VOLUME 85 FL (80-99); NEUTROPHILS % (AUTO) 36.7 % (45.0-75.0); PLATELET COUNT 258 K/UL (150-450); RED BLOOD COUNT 5.07 M/UL (4.70-6.10); RED CELL DISTRIBUTION WIDTH 12.7 % (11.6-14.8); WHITE BLOOD COUNT 4.7 K/UL (4.8-10.8)
--- NOTE | 2019-03-02 07:35 | NUR ---
NURSE NOTES: Patient received resting in bed, alert and oriented. Responds appropriately. Breathing even and unlabored on room air. Denies SOB or pain at this time. IV site on left hand observed. Bed is locked in lowest position, call light placed within reach. Will continue to monitor.
[2019-03-02 08:00] VITALS: BP 139/68
[2019-03-02 08:05] LABS: ANION GAP 8 mmol/L (5-15); BLOOD UREA NITROGEN 12 mg/dL (7-18); CALCIUM 9.3 MG/DL (8.5-10.1); CARBON DIOXIDE 30 MMOL/L (21-32); CHLORIDE 102 MMOL/L (98-107); CREATININE 1.4 MG/DL (0.55-1.30); POTASSIUM 3.9 MMOL/L (3.5-5.1); SODIUM 139 MMOL/L (136-145)
--- NOTE | 2019-03-02 08:25 | NUR ---
[employer] SI:CELLULITIS VS: BP 148/72, P 74, T 98.1, RR 18, SpO2 94 WBC 4.7, Hgb 14.0, CR 1.4 IS:NIFEDIPINE 60mg FOLATE 2mg FLOMAX 0.4mg PROTONIX 40mg MED/SURG STATUS
--- NOTE | 2019-03-02 08:28 | General Progress Note ---
Assessment/Plan Problem List: (1) Wound of left ankle ICD Codes: S91.002A - Unspecified open wound, left ankle, initial encounter SNOMED: 805299026, [id number] (2) Cellulitis ICD Codes: L03.90 - Cellulitis, unspecified SNOMED: 273087501 Qualifiers: Qualified Codes: L03.90 - Cellulitis, unspecified Status: stable, progressing Assessment/Plan: wound care abx pain control cbc bmp am dc plan snf Subjective Constitutional: Reports: weakness Allergies: Coded Allergies: No Known Allergies (Unverified , 02/27/19) All Systems: reviewed and negative except above Subjective calm in bed sleepy Objective Last 24 Hour Vital Signs Date Time Temp Pulse Resp B/P (MAP) Pulse Ox O2 Delivery O2 Flow Rate FiO2 03/02/19 08:17 87 20 94 Room Air 21 03/02/19 04:00 98.1 79 18 144/62 (89) 98 03/02/19 00:00 97.7 73 18 148/72 (97) 97 03/01/19 21:00 Room Air 03/01/19 20:32 74 18 98 Room Air 21 03/01/19 20:00 97.5 64 19 154/87 (109) 97 03/01/19 15:45 98.4 74 17 152/98 (116) 100 03/01/19 15:38 75 142/93 03/01/19 14:08 75 16 98 Room Air 21 03/01/19 12:00 98.2 69 17 142/93 (109) 99 03/01/19 09:00 Room Air Intake and Output 03/01/19 03/02/19 19:00 07:00 Intake Total 2350 ml 110 ml Output Total 500 ml Balance 1850 ml 110 ml Intake Oral 2240 ml IV Total 110 ml 110 ml Output Urine Total 500 ml # Voids 6 2 # Bowel Movements 1 Laboratory Tests 03/01/19 13:00: Vancomycin Level Trough 17.1H 03/01/19 16:50: Urine Opiates Screen Negative, Urine Barbiturates Screen Negative, Phencyclidine (PCP) Screen Negative, Urine Amphetamines Screen Negative, Urine Benzodiazepines Screen Negative, Urine Cocaine Screen Negative, Urine Marijuana (THC) Screen Negative 03/02/19 05:17: White Blood Count 4.7L, Red Blood Count 5.07, Hemoglobin 14.0L, Hematocrit 43.3 , Mean Corpuscular Volume 85, Mean Corpuscular Hemoglobin 27.5, Mean Corpuscular Hemoglobin Concent 32.3, Red Cell Distribution Width 12.7, Platelet Count 258, Mean Platelet Volume 7.2, Neutrophils (%) (Auto) 36.7L, Lymphocytes ( %) (Auto) 42.4, Monocytes (%) (Auto) 9.0, Eosinophils (%) (Auto) 9.9H, Basophils (%) (Auto) 2.0, Sodium Level 139, Potassium Level 3.9, Chloride Level 102, Carbon Dioxide Level 30, Anion Gap 8, Blood Urea Nitrogen 12, Creatinine 1.4H, Estimat Glomerular Filtration Rate > 60, Glucose Level 106, Calcium Level 9.3 Height (Feet): 6 Height (Inches): 8.00 Weight (Pounds): 260 General Appearance: lethargic EENT: normal ENT inspection Neck: normal alignment Cardiovascular: normal peripheral pulses, normal rate, regular rhythm Respiratory/Chest: chest wall non-tender, lungs clear, normal breath sounds Abdomen: normal bowel sounds, non tender, soft Extremities: normal inspection Edema: no edema noted Arm (L), no edema noted Arm (R), no edema noted Leg (L), no edema noted Leg (R), no edema noted Pedal (L), no edema noted Pedal (R), no edema noted Generalized Neurologic: motor weakness Skin: normal pigmentation, warm/dry Objective left medial ankle wound sl draining Aleksandr Apple DO Mar 02, 2019 08:28
[2019-03-02] MEDS: Docusate 100mg cap ORAL SCH ×2 (08:54→17:29)
[2019-03-02] MEDS: Cefepime HCl 2 GM in D5W 110 ML IV SCH (08:57)
[2019-03-02] MEDS: Heparin 5000 units/ml inj SUBQ SCH ×2 (08:59→21:34)
[2019-03-02 12:00] VITALS: BP 145/73
--- NOTE | 2019-03-02 12:27 | Nephrology Progress Note ---
Assessment/Plan Problem List: (1) Cellulitis (2) Wound of left ankle (3) Renal failure (ARF), acute on chronic (4) HTN (hypertension) (5) Diabetes mellitus Assessment: A1c : 7 Assessment Renal failure : Dehydration ? Meds ( Lisinopril) HTN Left leg cellulitis : Surgical note This is a 48-year-old male with a left medial distal lower extremity ulcer with cellulitis. Initially also much smaller but now presents larger with necrotic slough. Stage IV ulcer with unknown initial etiology. Foul odor. Serous drainage. No abscess or purulent drainage identified. No care has been provided to it as noted on examination. Wound was evaluated with patient at bedside. There was significant amount of necrotic slough. With patient's permission non-excisional debridement of the slough was performed with gauze. Underlying wound bed does have some viable tissue identified. There is some surrounding cellulitis. There is no pus. Plan Add procardia for high BP Add folic acid hydrated avoid nephrotoxics monitor renal parameters per orders Subjective ROS Limited/Unobtainable: No Constitutional: Reports: malaise Objective Objective Last 24 Hour Vital Signs Date Time Temp Pulse Resp B/P (MAP) Pulse Ox O2 Delivery O2 Flow Rate FiO2 03/02/19 09:00 Room Air 03/02/19 08:56 87 144/62 03/02/19 08:17 87 20 94 Room Air 21 03/02/19 08:00 97.9 74 18 139/68 (91) 100 03/02/19 04:00 98.1 79 18 144/62 (89) 98 03/02/19 00:00 97.7 73 18 148/72 (97) 97 03/01/19 21:00 Room Air 03/01/19 20:32 74 18 98 Room Air 21 03/01/19 20:00 97.5 64 19 154/87 (109) 97 03/01/19 15:45 98.4 74 17 152/98 (116) 100 03/01/19 15:38 75 142/93 03/01/19 14:08 75 16 98 Room Air 21 Intake and Output 03/01/19 03/02/19 19:00 07:00 Intake Total 2350 ml 110 ml Output Total 500 ml Balance 1850 ml 110 ml Intake Oral 2240 ml IV Total 110 ml 110 ml Output Urine Total 500 ml # Voids 6 2 # Bowel Movements 1 Laboratory Tests 03/01/19 13:00: Vancomycin Level Trough 17.1H 03/01/19 16:50: Urine Opiates Screen Negative, Urine Barbiturates Screen Negative, Phencyclidine (PCP) Screen Negative, Urine Amphetamines Screen Negative, Urine Benzodiazepines Screen Negative, Urine Cocaine Screen Negative, Urine Marijuana (THC) Screen Negative 03/02/19 05:17: White Blood Count 4.7L, Red Blood Count 5.07, Hemoglobin 14.0L, Hematocrit 43.3 , Mean Corpuscular Volume 85, Mean Corpuscular Hemoglobin 27.5, Mean Corpuscular Hemoglobin Concent 32.3, Red Cell Distribution Width 12.7, Platelet Count 258, Mean Platelet Volume 7.2, Neutrophils (%) (Auto) 36.7L, Lymphocytes ( %) (Auto) 42.4, Monocytes (%) (Auto) 9.0, Eosinophils (%) (Auto) 9.9H, Basophils (%) (Auto) 2.0, Sodium Level 139, Potassium Level 3.9, Chloride Level 102, Carbon Dioxide Level 30, Anion Gap 8, Blood Urea Nitrogen 12, Creatinine 1.4H, Estimat Glomerular Filtration Rate > 60, Glucose Level 106, Calcium Level 9.3 Height (Feet): 6 Height (Inches): 8.00 Weight (Pounds): 260 General Appearance: no apparent distress Objective no change in PE Remy Pan MD Mar 02, 2019 12:27
--- NOTE | 2019-03-02 14:45 | Infectious Diseases Prog Note ---
Assessment/Plan Assessment/Plan Abx: IV vacomycin 02/27- Cefepime 02/27- Zosyn x1 02/27 Assessment: L leg ulcer and surrounding cellulitis- -02/28 SP bedside debridement --wound cx: E.coli (R amp, otherwise S), MSSA) -xray L tibia/fibula: Bone mineralization within normal limits. No acute fracture identified. Partially imaged knee and ankle joints are maintained. There are degenerative changes of the knee joint with small osteophytes. No significant suprapatellar joint effusion. No radiopaque foreign body. Questioned soft tissue irregularity involving the medial leg. Correlation with physical exam recommended. Afebrile No leukocytosis b/l DVT of LE on Xarelto Plan: -D/c IV Vancomycin and Cefepime #12/10-14 and start Ancef -expect switching to PO keflex upon discharge -f/u cx -Monitor CBC/CMP, temperatures -wound care Thank you for this consultation. Will continue to follow along with you. Discussed with RN. Subjective Allergies: Coded Allergies: No Known Allergies (Unverified , 02/27/19) Objective Vital Signs Last 24 Hour Vital Signs Date Time Temp Pulse Resp B/P (MAP) Pulse Ox O2 Delivery O2 Flow Rate FiO2 03/02/19 12:00 97.7 78 17 145/73 (97) 98 03/02/19 09:00 Room Air 03/02/19 08:56 87 144/62 03/02/19 08:17 87 20 94 Room Air 21 03/02/19 08:00 97.9 74 18 139/68 (91) 100 03/02/19 04:00 98.1 79 18 144/62 (89) 98 03/02/19 00:00 97.7 73 18 148/72 (97) 97 03/01/19 21:00 Room Air 03/01/19 20:32 74 18 98 Room Air 21 03/01/19 20:00 97.5 64 19 154/87 (109) 97 03/01/19 15:45 98.4 74 17 152/98 (116) 100 03/01/19 15:38 75 142/93 Height (Feet): 6 Height (Inches): 8.00 Weight (Pounds): 260 Objective General Appearance: no apparent distress, alert, GCS 15, non-toxic Head: normocephalic, atraumatic Eyes: bilateral eye normal inspection, bilateral eye PERRL ENT: hearing grossly normal, normal voice Neck: full range of motion Respiratory: lungs clear, normal breath sounds, speaking full sentences Cardiovascular: regular rate, rhythm, edema - bilateral calves Gastrointestinal: normal bowel sounds, non tender, soft Rectal: deferred Genitourinary: normal inspection Musculoskeletal: back normal, gait/station normal, normal range of motion, tender - TTP LLE, ulcerated wound with purulent d/c and crusting noted on the medial left calf. 3in X 2 in in size Neurologic: alert, oriented x3, responsive, motor strength/tone normal, sensory intact, speech normal, grossly normal Psychiatric: judgement/insight normal Skin: no rash, warm/dry, well hydrated, other -debrided ulcer on medial left calf. 3in X 2 in in size. Surrounding erythema and warmth as well. Lymphatic: no adenopathy Microbiology Date/Time Source Procedure Growth Status 02/27/19 15:00 Wound Gram Stain - Final Complete 02/27/19 15:00 Wound Culture - Final Escherichia Coli Staphylococcus Aureus Complete 02/27/19 18:00 Nasal Nares MRSA Culture - Final NO METHICILLIN RESISTANT STAPH AUREUS... Complete 02/27/19 18:00 Rectum VRE Culture - Final NO VANCOMYCIN RESISTANT ENTEROCOCCUS ... Complete 02/27/19 18:00 Rectum - Final NO CARBAPENEM-RESISTANT ENTEROBACTERI... Complete Laboratory Tests Test 03/01/19 16:50 03/02/19 05:17 Urine Opiates Screen Negative (NEGATIVE) Urine Barbiturates Screen Negative (NEGATIVE) Phencyclidine (PCP) Screen Negative (NEGATIVE) Urine Amphetamines Screen Negative (NEGATIVE) Urine Benzodiazepines Screen Negative (NEGATIVE) Urine Cocaine Screen Negative (NEGATIVE) Urine Marijuana (THC) Screen Negative (NEGATIVE) White Blood Count 4.7 K/UL (4.8-10.8) L Red Blood Count 5.07 M/UL (4.70-6.10) Hemoglobin 14.0 G/DL (14.2-18.0) L Hematocrit 43.3 % (42.0-52.0) Mean Corpuscular Volume 85 FL (80-99) Mean Corpuscular Hemoglobin 27.5 PG (27.0-31.0) Mean Corpuscular Hemoglobin Concent 32.3 G/DL (32.0-36.0) Red Cell Distribution Width 12.7 % (11.6-14.8) Platelet Count 258 K/UL (150-450) Mean Platelet Volume 7.2 FL (6.5-10.1) Neutrophils (%) (Auto) 36.7 % (45.0-75.0) L Lymphocytes (%) (Auto) 42.4 % (20.0-45.0) Monocytes (%) (Auto) 9.0 % (1.0-10.0) Eosinophils (%) (Auto) 9.9 % (0.0-3.0) H Basophils (%) (Auto) 2.0 % (0.0-2.0) Sodium Level 139 MMOL/L (136-145) Potassium Level 3.9 MMOL/L (3.5-5.1) Chloride Level 102 MMOL/L (98-107) Carbon Dioxide Level 30 MMOL/L (21-32) Anion Gap 8 mmol/L (5-15) Blood Urea Nitrogen 12 mg/dL (7-18) Creatinine 1.4 MG/DL (0.55-1.30) H Estimat Glomerular Filtration Rate > 60 mL/min (>60) Glucose Level 106 MG/DL (74-106) Calcium Level 9.3 MG/DL (8.5-10.1) Current Medications Medications (Trade) Dose Ordered Sig/Perfecto Route PRN Reason Start Time Stop Time Status Last Admin Dose Admin Acetaminophen (Tylenol) 650 mg Q4H PRN ORAL fever 02/27/19 16:00 03/29/19 15:59 Albuterol/ Ipratropium (Albuterol/ Ipratropium) 3 ml Q4H PRN HHN Shortness of Breath 02/27/19 16:00 03/04/19 15:59 Cefepime HCl 2 gm/ Dextrose 110 ml @ 220 mls/hr EVERY 12 HOURS IV 02/27/19 21:00 03/06/19 20:59 03/02/19 08:57 Dextrose (Dextrose 50%) 25 ml Q30M PRN IV Hypoglycemia 02/27/19 16:00 03/29/19 15:59 Dextrose (Dextrose 50%) 50 ml Q30M PRN IV Hypoglycemia 02/27/19 16:00 03/29/19 15:59 Docusate Sodium (Colace) 100 mg TWICE A DAY ORAL 02/28/19 18:00 03/30/19 17:59 03/02/19 08:54 Folic Acid (Folate) 2 mg DAILY ORAL 03/01/19 15:30 03/31/19 15:29 03/02/19 08:55 Heparin Sodium (Porcine) (Heparin 5000 units/ml) 5,000 units EVERY 12 HOURS SUBQ 02/27/19 21:00 03/29/19 20:59 03/02/19 08:59 Hydralazine HCl (Apresoline) 25 mg Q4H PRN ORAL bp over 160 syst 02/28/19 15:30 03/30/19 15:29 03/01/19 05:09 Morphine Sulfate (Morphine Sulfate) 2 mg Q4H PRN IVP Moderate Pain (Pain Scale 4-6) 02/27/19 16:00 03/06/19 15:59 02/28/19 02:38 Nifedipine (Procardia XL) 60 mg DAILY ORAL 03/01/19 15:30 03/31/19 15:29 03/02/19 08:56 Nitroglycerin (Ntg) 0.4 mg Q5M PRN SL Prn Chest Pain 02/27/19 16:00 03/29/19 15:59 Ondansetron HCl (Zofran) 4 mg Q6H PRN IVP Nausea & Vomiting 02/27/19 16:00 03/29/19 15:59 Pantoprazole (Protonix) 40 mg DAILY ORAL 02/28/19 15:30 03/30/19 15:29 03/02/19 08:55 Polyethylene Glycol (Miralax) 17 gm DAILYPRN PRN ORAL Constipation 02/27/19 16:00 03/29/19 15:59 03/02/19 03:36 Tamsulosin HCl (Flomax) 0.4 mg BEDTIME ORAL 02/28/19 21:00 03/30/19 20:59 03/01/19 20:47 Temazepam (Restoril) 15 mg HSPRN PRN ORAL Insomnia 02/27/19 16:00 03/06/19 15:59 Vancomycin HCl (Vanco rx to dose) 1 ea DAILY PRN MISC . 02/27/19 17:45 03/29/19 17:44 Vancomycin HCl/ Dextrose 275 ml @ 183.333 mls/hr Q12H IVPB 03/02/19 06:00 03/07/19 05:59 03/02/19 06:06 Sofia Eugene M.D. Mar 02, 2019 14:45
--- NOTE | 2019-03-02 15:24 | Surgery Progress Note ---
Surgery Progress Note Subjective Symptoms: improved, pain absent, tolerating diet, passing flatus, BM, pain decreased Objective Last 24 Hour Vital Signs Date Time Temp Pulse Resp B/P (MAP) Pulse Ox O2 Delivery O2 Flow Rate FiO2 03/02/19 12:00 97.7 78 17 145/73 (97) 98 03/02/19 09:00 Room Air 03/02/19 08:56 87 144/62 03/02/19 08:17 87 20 94 Room Air 21 03/02/19 08:00 97.9 74 18 139/68 (91) 100 03/02/19 04:00 98.1 79 18 144/62 (89) 98 03/02/19 00:00 97.7 73 18 148/72 (97) 97 03/01/19 21:00 Room Air 03/01/19 20:32 74 18 98 Room Air 21 03/01/19 20:00 97.5 64 19 154/87 (109) 97 03/01/19 15:45 98.4 74 17 152/98 (116) 100 03/01/19 15:38 75 142/93 I&O Intake and Output 03/01/19 03/02/19 19:00 07:00 Intake Total 2350 ml 110 ml Output Total 500 ml Balance 1850 ml 110 ml Intake Oral 2240 ml IV Total 110 ml 110 ml Output Urine Total 500 ml # Voids 6 2 # Bowel Movements 1 Dressing: saturated Wound: clean Drains: none Cardiovascular: RSR Respiratory: clear Abdomen: soft, flat Extremities: edema, no tenderness, no cyanosis Laboratory Tests Test 03/01/19 16:50 03/02/19 05:17 Urine Opiates Screen Negative (NEGATIVE) Urine Barbiturates Screen Negative (NEGATIVE) Phencyclidine (PCP) Screen Negative (NEGATIVE) Urine Amphetamines Screen Negative (NEGATIVE) Urine Benzodiazepines Screen Negative (NEGATIVE) Urine Cocaine Screen Negative (NEGATIVE) Urine Marijuana (THC) Screen Negative (NEGATIVE) White Blood Count 4.7 K/UL (4.8-10.8) L Red Blood Count 5.07 M/UL (4.70-6.10) Hemoglobin 14.0 G/DL (14.2-18.0) L Hematocrit 43.3 % (42.0-52.0) Mean Corpuscular Volume 85 FL (80-99) Mean Corpuscular Hemoglobin 27.5 PG (27.0-31.0) Mean Corpuscular Hemoglobin Concent 32.3 G/DL (32.0-36.0) Red Cell Distribution Width 12.7 % (11.6-14.8) Platelet Count 258 K/UL (150-450) Mean Platelet Volume 7.2 FL (6.5-10.1) Neutrophils (%) (Auto) 36.7 % (45.0-75.0) L Lymphocytes (%) (Auto) 42.4 % (20.0-45.0) Monocytes (%) (Auto) 9.0 % (1.0-10.0) Eosinophils (%) (Auto) 9.9 % (0.0-3.0) H Basophils (%) (Auto) 2.0 % (0.0-2.0) Sodium Level 139 MMOL/L (136-145) Potassium Level 3.9 MMOL/L (3.5-5.1) Chloride Level 102 MMOL/L (98-107) Carbon Dioxide Level 30 MMOL/L (21-32) Anion Gap 8 mmol/L (5-15) Blood Urea Nitrogen 12 mg/dL (7-18) Creatinine 1.4 MG/DL (0.55-1.30) H Estimat Glomerular Filtration Rate > 60 mL/min (>60) Glucose Level 106 MG/DL (74-106) Calcium Level 9.3 MG/DL (8.5-10.1) Plan Problems: (1) Cellulitis Assessment & Plan: This is a 48-year-old male with a left medial distal lower extremity ulcer with cellulitis. Initially also much smaller but now presents larger with necrotic slough. Stage IV ulcer with unknown initial etiology. Foul odor. Serous drainage. No abscess or purulent drainage identified. No care has been provided to it as noted on examination. Wound was evaluated with patient at bedside. There was significant amount of necrotic slough. With patient's permission non-excisional debridement of the slough was performed with gauze. Underlying wound bed does have some viable tissue identified. There is some surrounding cellulitis. There is no pus. plain films with Bone mineralization within normal limits. No acute fracture identified. Partially imaged knee and ankle joints are maintained. There are degenerative changes of the knee joint with small osteophytes. No significant suprapatellar joint effusion. No radiopaque foreign body. Questioned soft tissue irregularity involving the medial leg. Correlation with physical exam recommended. IV antibiotics as per infectious disease Keep affected extremity elevated Wash wound daily with soap and water wound significantly improved since admission after care plan initiated now healing process Apply Thera honey and gauze twice daily Thank you we will follow with Jem Schofield Mar 02, 2019 15:24
[2019-03-02 15:51] VITALS: BP 140/69
--- NOTE | 2019-03-02 16:42 | NUR ---
HAND-OFF: Report given to Ching NICHOLS.
--- NOTE | 2019-03-02 16:45 | NUR ---
NURSE NOTES: Received report from Marisol NICHOLS. pt resting in bed. VS stable. denies pain. no SOB noted. Dressing LLE, C/D/I, elevated on pillow. call light within reach. will continue to monitor.
--- NOTE | 2019-03-02 19:30 | NUR ---
HAND-OFF: Report given to Jair NICHOLS.
--- NOTE | 2019-03-02 19:46 | NUR ---
NURSE NOTES: Received report from MAGDALENA Flower. Patient is laying on the bed, self-positioned. Patient is awake, alert, and verbally responsive to let needs known. Patient is breathing unlabored and evenly without signs of distress, discomfort, or SOB. No pain noted at this time. Left hand IV is intact, dry, and clean. Bed is placed at the lowest. Brake and side rails are up x2 for safety measures. Call light placed within reach. Will continue to monitor and provide care as ordered.
[2019-03-02 20:00] VITALS: BP 144/89
[2019-03-02] MEDS: Tamsulosin 0.4mg cap ORAL SCH (21:27)
[2019-03-02] MEDS: ceFAZolin sod 1 GM in D5W 55 ML IVPB SCH (21:28)
[2019-03-03] VITALS: BP 140/88
--- NOTE | 2019-03-03 00:50 | NUR ---
NURSE NOTES: Provide patient with left ankle dressing change while patient was awake. Patient preferred to have the dressing change now than later in the morning. Performed dressing change as ordered. Cleansed with soap and water. Applied therahoney and placed gauze. Hold it in place with silk tape. Patient tolerated the procedure well and actively participated by lifting the ankle as needed. Will continue to monitor and provide care as ordered.
[2019-03-03 04:00] VITALS: BP 154/106
[2019-03-03] MEDS: ceFAZolin sod 1 GM in D5W 55 ML IVPB SCH (05:33)
[2019-03-03 06:49] LABS: ANION GAP 7 mmol/L (5-15); BASOPHILS % (AUTO) 0.9 % (0.0-2.0); BLOOD UREA NITROGEN 11 mg/dL (7-18); CALCIUM 9.1 MG/DL (8.5-10.1); CARBON DIOXIDE 30 MMOL/L (21-32); CHLORIDE 104 MMOL/L (98-107); CREATININE 1.4 MG/DL (0.55-1.30); EOSINOPHILS % (AUTO) 8.3 % (0.0-3.0); HEMATOCRIT 43.4 % (42.0-52.0); HEMOGLOBIN 14.1 G/DL (14.2-18.0); LYMPHOCYTES % (AUTO) 34.4 % (20.0-45.0); MEAN CORPUSCULAR VOLUME 85 FL (80-99); MONOCYTES % (AUTO) 8.8 % (1.0-10.0); NEUTROPHILS % (AUTO) 47.6 % (45.0-75.0); PLATELET COUNT 269 K/UL (150-450); POTASSIUM 4.3 MMOL/L (3.5-5.1); RED BLOOD COUNT 5.09 M/UL (4.70-6.10); RED CELL DISTRIBUTION WIDTH 12.5 % (11.6-14.8); SODIUM 141 MMOL/L (136-145); WHITE BLOOD COUNT 5.1 K/UL (4.8-10.8)
--- NOTE | 2019-03-03 07:20 | NUR ---
HAND-OFF: Report given to MAGDALENA Tan.
--- NOTE | 2019-03-03 07:43 | NUR ---
NURSE NOTES: Patient is awake and alert and oriented,respirations unlabored.Dressing to the left leg is in place and clean.Elevated on pillow.patient ate breakfast.call light within reach.
[2019-03-03 08:06] VITALS: BP 134/86
--- NOTE | 2019-03-03 08:31 | NUR ---
MEMBERSHIP SALES REPRESENTATIVEFIELD SUPPORT TECHNICIAN SI:CELLULITIS VS: BP154/106, P 71, T 97.8, RR 18, SpO2 96 Cr 1.4, Hgb 14.1 IS:CEFAZOLIN 55ml IVPB NIFEDIPINE 60mg FOLATE 2mg PROTONIX 40mg MED/SURG STATUS
[2019-03-03] MEDS: Docusate 100mg cap ORAL SCH ×2 (08:33→18:07)
[2019-03-03] MEDS: Heparin 5000 units/ml inj SUBQ SCH (08:35)
--- NOTE | 2019-03-03 11:54 | General Progress Note ---
Assessment/Plan Problem List: (1) Wound of left ankle ICD Codes: S91.002A - Unspecified open wound, left ankle, initial encounter SNOMED: 590284651, 920059345 (2) Cellulitis ICD Codes: L03.90 - Cellulitis, unspecified SNOMED: 603845603 Qualifiers: Qualified Codes: L03.90 - Cellulitis, unspecified Status: stable, progressing Assessment/Plan: wound care abx pain control cbc bmp am dc plan w hh Subjective Constitutional: Reports: weakness Allergies: Coded Allergies: No Known Allergies (Unverified , 02/27/19) All Systems: reviewed and negative except above Subjective calm in bed sleepy Objective Last 24 Hour Vital Signs Date Time Temp Pulse Resp B/P (MAP) Pulse Ox O2 Delivery O2 Flow Rate FiO2 03/03/19 10:07 Room Air 03/03/19 08:33 71 134/86 03/03/19 08:06 97.8 71 18 134/86 (102) 97 03/03/19 04:00 97.9 71 18 154/106 (122) 98 03/03/19 00:00 98.7 72 18 140/88 (105) 96 03/02/19 21:00 Room Air 03/02/19 20:00 98.1 73 18 144/89 (107) 97 03/02/19 16:48 Room Air 03/02/19 15:51 98.1 74 18 140/69 (92) 99 03/02/19 12:00 97.7 78 17 145/73 (97) 98 Intake and Output 03/02/19 03/03/19 19:00 07:00 Intake Total 240 ml 295 ml Output Total 750 ml Balance 240 ml -455 ml Intake Oral 240 ml 240 ml IV Total 55 ml Output Urine Total 750 ml # Voids 1 Laboratory Tests 03/03/19 05:10: White Blood Count 5.1, Red Blood Count 5.09, Hemoglobin 14.1L, Hematocrit 43.4, Mean Corpuscular Volume 85, Mean Corpuscular Hemoglobin 27.8, Mean Corpuscular Hemoglobin Concent 32.6, Red Cell Distribution Width 12.5, Platelet Count 269, Mean Platelet Volume 6.9, Neutrophils (%) (Auto) 47.6, Lymphocytes (%) (Auto) 34.4, Monocytes (%) (Auto) 8.8, Eosinophils (%) (Auto) 8.3H, Basophils (%) (Auto ) 0.9, Sodium Level 141, Potassium Level 4.3, Chloride Level 104, Carbon Dioxide Level 30, Anion Gap 7, Blood Urea Nitrogen 11, Creatinine 1.4H, Estimat Glomerular Filtration Rate > 60, Glucose Level 117H, Calcium Level 9.1 Height (Feet): 6 Height (Inches): 8.00 Weight (Pounds): 260 General Appearance: lethargic EENT: normal ENT inspection Neck: normal alignment Cardiovascular: normal peripheral pulses, normal rate, regular rhythm Respiratory/Chest: chest wall non-tender, lungs clear, normal breath sounds Abdomen: normal bowel sounds, non tender, soft Extremities: normal inspection Edema: no edema noted Arm (L), no edema noted Arm (R), no edema noted Leg (L), no edema noted Leg (R), no edema noted Pedal (L), no edema noted Pedal (R), no edema noted Generalized Neurologic: motor weakness Skin: normal pigmentation, warm/dry Objective left medial ankle wound sl draining Aleksandr Apple DO Mar 03, 2019 11:54
--- NOTE | 2019-03-03 12:13 | NUR ---
INSURANCE UPDATED CLINICALS HAVE BEEN FAXED TO: [facility] PLEASE FAX THE REVIEW AND CLINICAL TO FX: [phone] PH: [phone]
[2019-03-03 12:14] VITALS: BP 132/87
--- NOTE | 2019-03-03 12:30 | Surgery Progress Note ---
Surgery Progress Note Subjective Symptoms: improved, tolerating diet, voiding well, passing flatus, BM Objective Last 24 Hour Vital Signs Date Time Temp Pulse Resp B/P (MAP) Pulse Ox O2 Delivery O2 Flow Rate FiO2 03/03/19 12:14 98.3 68 18 132/87 (102) 98 03/03/19 10:07 Room Air 03/03/19 08:33 71 134/86 03/03/19 08:06 97.8 71 18 134/86 (102) 97 03/03/19 04:00 97.9 71 18 154/106 (122) 98 03/03/19 00:00 98.7 72 18 140/88 (105) 96 03/02/19 21:00 Room Air 03/02/19 20:00 98.1 73 18 144/89 (107) 97 03/02/19 16:48 Room Air 03/02/19 15:51 98.1 74 18 140/69 (92) 99 I&O Intake and Output 03/02/19 03/03/19 19:00 07:00 Intake Total 240 ml 295 ml Output Total 750 ml Balance 240 ml -455 ml Intake Oral 240 ml 240 ml IV Total 55 ml Output Urine Total 750 ml # Voids 1 Dressing: saturated Wound: clean Cardiovascular: RSR Respiratory: clear Abdomen: soft, non-tender, present bowel sounds Extremities: no edema, no tenderness, no cyanosis, other Laboratory Tests Test 03/03/19 05:10 White Blood Count 5.1 K/UL (4.8-10.8) Red Blood Count 5.09 M/UL (4.70-6.10) Hemoglobin 14.1 G/DL (14.2-18.0) L Hematocrit 43.4 % (42.0-52.0) Mean Corpuscular Volume 85 FL (80-99) Mean Corpuscular Hemoglobin 27.8 PG (27.0-31.0) Mean Corpuscular Hemoglobin Concent 32.6 G/DL (32.0-36.0) Red Cell Distribution Width 12.5 % (11.6-14.8) Platelet Count 269 K/UL (150-450) Mean Platelet Volume 6.9 FL (6.5-10.1) Neutrophils (%) (Auto) 47.6 % (45.0-75.0) Lymphocytes (%) (Auto) 34.4 % (20.0-45.0) Monocytes (%) (Auto) 8.8 % (1.0-10.0) Eosinophils (%) (Auto) 8.3 % (0.0-3.0) H Basophils (%) (Auto) 0.9 % (0.0-2.0) Sodium Level 141 MMOL/L (136-145) Potassium Level 4.3 MMOL/L (3.5-5.1) Chloride Level 104 MMOL/L (98-107) Carbon Dioxide Level 30 MMOL/L (21-32) Anion Gap 7 mmol/L (5-15) Blood Urea Nitrogen 11 mg/dL (7-18) Creatinine 1.4 MG/DL (0.55-1.30) H Estimat Glomerular Filtration Rate > 60 mL/min (>60) Glucose Level 117 MG/DL (74-106) H Calcium Level 9.1 MG/DL (8.5-10.1) Plan Problems: (1) Cellulitis Assessment & Plan: This is a 48-year-old male with a left medial distal lower extremity ulcer with cellulitis. Initially also much smaller but now presents larger with necrotic slough. Stage IV ulcer with unknown initial etiology. Foul odor. Serous drainage. No abscess or purulent drainage identified. No care has been provided to it as noted on examination. Wound was evaluated with patient at bedside. There was significant amount of necrotic slough. With patient's permission non-excisional debridement of the slough was performed with gauze. Underlying wound bed does have some viable tissue identified. There is some surrounding cellulitis. There is no pus. plain films with Bone mineralization within normal limits. No acute fracture identified. Partially imaged knee and ankle joints are maintained. There are degenerative changes of the knee joint with small osteophytes. No significant suprapatellar joint effusion. No radiopaque foreign body. Questioned soft tissue irregularity involving the medial leg. Correlation with physical exam recommended. IV antibiotics as per infectious disease Keep affected extremity elevated Wash wound daily with soap and water wound significantly improved since admission after care plan initiated now healing process Apply Thera honey and gauze twice daily Thank you we will follow with Recs dc planning without outpatient care. referred patient to [place] [facility] [place] Mar 03, 2019 12:30
--- NOTE | 2019-03-03 12:39 | Infectious Diseases Prog Note ---
Assessment/Plan Assessment/Plan Assessment: L leg ulcer and surrounding cellulitis- -02/28 SP bedside debridement --wound cx: E.coli (R amp, otherwise S), MSSA) -xray L tibia/fibula: Bone mineralization within normal limits. No acute fracture identified. Partially imaged knee and ankle joints are maintained. There are degenerative changes of the knee joint with small osteophytes. No significant suprapatellar joint effusion. No radiopaque foreign body. Questioned soft tissue irregularity involving the medial leg. Correlation with physical exam recommended. -Bcx NTD Afebrile No leukocytosis b/l DVT of LE on Xarelto Plan: -Switch Ancef #2 (abx d #01/09) to PO Keflex -ok to discharge on PO keflex 500mg qid for 5 more days -03/02 SP IV Vancomycin , Cefepime #4 -02/27 SP Zosyn x1 -f/u cx -Monitor CBC/CMP, temperatures -wound care Thank you for this consultation. Will continue to follow along with you. Discussed with RN. Subjective Allergies: Coded Allergies: No Known Allergies (Unverified , 02/27/19) Subjective afebrile no leukocytosis Bcx NTD Objective Vital Signs Last 24 Hour Vital Signs Date Time Temp Pulse Resp B/P (MAP) Pulse Ox O2 Delivery O2 Flow Rate FiO2 03/03/19 12:14 98.3 68 18 132/87 (102) 98 03/03/19 10:07 Room Air 03/03/19 08:33 71 134/86 03/03/19 08:06 97.8 71 18 134/86 (102) 97 03/03/19 04:00 97.9 71 18 154/106 (122) 98 03/03/19 00:00 98.7 72 18 140/88 (105) 96 03/02/19 21:00 Room Air 03/02/19 20:00 98.1 73 18 144/89 (107) 97 03/02/19 16:48 Room Air 03/02/19 15:51 98.1 74 18 140/69 (92) 99 Height (Feet): 6 Height (Inches): 8.00 Weight (Pounds): 260 Objective General Appearance: no apparent distress, alert, GCS 15, non-toxic Head: normocephalic, atraumatic Eyes: bilateral eye normal inspection, bilateral eye PERRL ENT: hearing grossly normal, normal voice Neck: full range of motion Respiratory: lungs clear, normal breath sounds, speaking full sentences Cardiovascular: regular rate, rhythm, edema - bilateral calves Gastrointestinal: normal bowel sounds, non tender, soft Rectal: deferred Genitourinary: normal inspection Musculoskeletal: back normal, gait/station normal, normal range of motion, tender - TTP LLE, ulcerated wound with purulent d/c and crusting noted on the medial left calf. 3in X 2 in in size Neurologic: alert, oriented x3, responsive, motor strength/tone normal, sensory intact, speech normal, grossly normal Psychiatric: judgement/insight normal Skin: no rash, warm/dry, well hydrated, other -debrided ulcer on medial left calf. 3in X 2 in in size. Surrounding erythema and warmth as well. Lymphatic: no adenopathy Laboratory Tests Test 03/03/19 05:10 White Blood Count 5.1 K/UL (4.8-10.8) Red Blood Count 5.09 M/UL (4.70-6.10) Hemoglobin 14.1 G/DL (14.2-18.0) L Hematocrit 43.4 % (42.0-52.0) Mean Corpuscular Volume 85 FL (80-99) Mean Corpuscular Hemoglobin 27.8 PG (27.0-31.0) Mean Corpuscular Hemoglobin Concent 32.6 G/DL (32.0-36.0) Red Cell Distribution Width 12.5 % (11.6-14.8) Platelet Count 269 K/UL (150-450) Mean Platelet Volume 6.9 FL (6.5-10.1) Neutrophils (%) (Auto) 47.6 % (45.0-75.0) Lymphocytes (%) (Auto) 34.4 % (20.0-45.0) Monocytes (%) (Auto) 8.8 % (1.0-10.0) Eosinophils (%) (Auto) 8.3 % (0.0-3.0) H Basophils (%) (Auto) 0.9 % (0.0-2.0) Sodium Level 141 MMOL/L (136-145) Potassium Level 4.3 MMOL/L (3.5-5.1) Chloride Level 104 MMOL/L (98-107) Carbon Dioxide Level 30 MMOL/L (21-32) Anion Gap 7 mmol/L (5-15) Blood Urea Nitrogen 11 mg/dL (7-18) Creatinine 1.4 MG/DL (0.55-1.30) H Estimat Glomerular Filtration Rate > 60 mL/min (>60) Glucose Level 117 MG/DL (74-106) H Calcium Level 9.1 MG/DL (8.5-10.1) Current Medications Medications (Trade) Dose Ordered Sig/Perfecto Route PRN Reason Start Time Stop Time Status Last Admin Dose Admin Acetaminophen (Tylenol) 650 mg Q4H PRN ORAL fever 02/27/19 16:00 03/29/19 15:59 Albuterol/ Ipratropium (Albuterol/ Ipratropium) 3 ml Q4H PRN HHN Shortness of Breath 02/27/19 16:00 03/04/19 15:59 Cefazolin Sodium 1 gm/Dextrose 55 ml @ 110 mls/hr Q8HR IVPB 03/02/19 22:00 03/09/19 21:59 03/03/19 05:33 Dextrose (Dextrose 50%) 25 ml Q30M PRN IV Hypoglycemia 02/27/19 16:00 03/29/19 15:59 Dextrose (Dextrose 50%) 50 ml Q30M PRN IV Hypoglycemia 02/27/19 16:00 03/29/19 15:59 Docusate Sodium (Colace) 100 mg TWICE A DAY ORAL 02/28/19 18:00 03/30/19 17:59 03/03/19 08:33 Folic Acid (Folate) 2 mg DAILY ORAL 03/01/19 15:30 03/31/19 15:29 03/03/19 08:33 Heparin Sodium (Porcine) (Heparin 5000 units/ml) 5,000 units EVERY 12 HOURS SUBQ 02/27/19 21:00 03/29/19 20:59 03/03/19 08:35 Hydralazine HCl (Apresoline) 25 mg Q4H PRN ORAL bp over 160 syst 02/28/19 15:30 03/30/19 15:29 03/01/19 05:09 Morphine Sulfate (Morphine Sulfate) 2 mg Q4H PRN IVP Moderate Pain (Pain Scale 4-6) 02/27/19 16:00 03/06/19 15:59 02/28/19 02:38 Nifedipine (Procardia XL) 60 mg DAILY ORAL 03/01/19 15:30 03/31/19 15:29 03/03/19 08:33 Nitroglycerin (Ntg) 0.4 mg Q5M PRN SL Prn Chest Pain 02/27/19 16:00 03/29/19 15:59 Ondansetron HCl (Zofran) 4 mg Q6H PRN IVP Nausea & Vomiting 02/27/19 16:00 03/29/19 15:59 Pantoprazole (Protonix) 40 mg DAILY ORAL 02/28/19 15:30 03/30/19 15:29 03/03/19 08:33 Polyethylene Glycol (Miralax) 17 gm DAILYPRN PRN ORAL Constipation 02/27/19 16:00 03/29/19 15:59 03/02/19 03:36 Tamsulosin HCl (Flomax) 0.4 mg BEDTIME ORAL 02/28/19 21:00 03/30/19 20:59 03/02/19 21:27 Temazepam (Restoril) 15 mg HSPRN PRN ORAL Insomnia 02/27/19 16:00 03/06/19 15:59 Sofia Eugene M.D. Mar 03, 2019 12:39
[2019-03-03] MEDS: Cephalexin 500mg cap ORAL SCH ×2 (13:20→18:07)
--- NOTE | 2019-03-03 15:08 | Nephrology Progress Note ---
Assessment/Plan Problem List: (1) Cellulitis (2) Wound of left ankle (3) Renal failure (ARF), acute on chronic (4) HTN (hypertension) (5) Diabetes mellitus Assessment: A1c : 7 Assessment Renal failure : Dehydration ? Meds ( Lisinopril) HTN Left leg cellulitis : Surgical note This is a 48-year-old male with a left medial distal lower extremity ulcer with cellulitis. Initially also much smaller but now presents larger with necrotic slough. Stage IV ulcer with unknown initial etiology. Foul odor. Serous drainage. No abscess or purulent drainage identified. No care has been provided to it as noted on examination. Wound was evaluated with patient at bedside. There was significant amount of necrotic slough. With patient's permission non-excisional debridement of the slough was performed with gauze. Underlying wound bed does have some viable tissue identified. There is some surrounding cellulitis. There is no pus. Plan Add procardia for high BP Add folic acid hydrated avoid nephrotoxics monitor renal parameters per orders Subjective ROS Limited/Unobtainable: No Constitutional: Reports: malaise Objective Objective Last 24 Hour Vital Signs Date Time Temp Pulse Resp B/P (MAP) Pulse Ox O2 Delivery O2 Flow Rate FiO2 03/03/19 12:14 98.3 68 18 132/87 (102) 98 03/03/19 10:07 Room Air 03/03/19 08:33 71 134/86 03/03/19 08:06 97.8 71 18 134/86 (102) 97 03/03/19 04:00 97.9 71 18 154/106 (122) 98 03/03/19 00:00 98.7 72 18 140/88 (105) 96 03/02/19 21:00 Room Air 03/02/19 20:00 98.1 73 18 144/89 (107) 97 03/02/19 16:48 Room Air 03/02/19 15:51 98.1 74 18 140/69 (92) 99 Intake and Output 03/02/19 03/03/19 19:00 07:00 Intake Total 240 ml 295 ml Output Total 750 ml Balance 240 ml -455 ml Intake Oral 240 ml 240 ml IV Total 55 ml Output Urine Total 750 ml # Voids 1 Laboratory Tests 03/03/19 05:10: White Blood Count 5.1, Red Blood Count 5.09, Hemoglobin 14.1L, Hematocrit 43.4, Mean Corpuscular Volume 85, Mean Corpuscular Hemoglobin 27.8, Mean Corpuscular Hemoglobin Concent 32.6, Red Cell Distribution Width 12.5, Platelet Count 269, Mean Platelet Volume 6.9, Neutrophils (%) (Auto) 47.6, Lymphocytes (%) (Auto) 34.4, Monocytes (%) (Auto) 8.8, Eosinophils (%) (Auto) 8.3H, Basophils (%) (Auto ) 0.9, Sodium Level 141, Potassium Level 4.3, Chloride Level 104, Carbon Dioxide Level 30, Anion Gap 7, Blood Urea Nitrogen 11, Creatinine 1.4H, Estimat Glomerular Filtration Rate > 60, Glucose Level 117H, Calcium Level 9.1 Height (Feet): 6 Height (Inches): 8.00 Weight (Pounds): 260 General Appearance: no apparent distress Cardiovascular: normal rate Respiratory/Chest: lungs clear Abdomen: soft Objective no change in PE Remy Pan MD Mar 03, 2019 15:08
[2019-03-03 16:08] VITALS: BP 128/76
--- NOTE | 2019-03-03 18:52 | NUR ---
NURSE NOTES: Discharge at this time with discharge instructions give.IV saline lock removed.ID hospital band removed.patient has his personal belongings.Patient has his discharge prescription and discharge teaching given patient understands.Picture taken of the left lower leg wound.patient will have Home Health services.Board [facility] facility notified that patient will be returning to the facility today.patient transferred by wheel chair to taxi waiting outside.
[2019-03-03] MEDS ORDERED: Tubing IV Secondary IV ONE (19:01)
--- NOTE | 2019-03-04 09:48 | Discharge Summary ---
Discharge Summary Discharge Summary _ DATE OF ADMISSION: 02/27/2019 DATE OF DISCHARGE: 03/03/2019 DISCHARGED BY: Dr Apple REASON FOR ADMISSION: 48 years old male presented with the left leg ulcer and pain in the left calf for 2 months. Patient reported erythema, oozing for 2weeks , increased warmth to touch and pain 8/10 on a scale 1-10. Patient reported chills for 2 days. He denied measuring temperature. 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 He denied any immunocompromised condition. He reported similar wound but of lesser extent in the past, requiring specialized treatment at the amputation prevention center. He denied trauma or fall. He reported applying Neosporin without any significant relief. Patient went to primary care provider for evaluation and subsequently was sent to emergency department. Patient was not put on any oral antibiotics. Upon evaluation vital signs were stable. Patient was afebrile. Laboratory work-up revealed no leukocytosis , stable hemoglobin and hematocrit. Stable electrolytes. BUN 17, creatinine 1.4. Glucose 113. Lactic acid 0.8. Stable LFT. X-ray of the left tibia-fibula demonstrated no acute fracture. Degenerative changes of the knee joint with small osteophytes noted. No significant suprapatellar joint effusion. In the emergency department the patient received 1 L of fluid , started on empiric vancomycin and Zosyn and admitted for further management to medical surgical floor with diagnosis of cellulitis and ulcerated wound of left lower extremity. CONSULTANTS: ID specialist Dr. Eugene belly packer Dr. Pan surgery Dr. [place] [facility]: Patient admitted to the floor. Infectious disease specialist closely followed. Antibiotics provided as per infectious disease specialist recommendations. Surgeon seen and evaluated patient Patient undergone bedside debridement on 02/28 due to significant amount of necrotic slough. Non-excisional debridement of the slough was performed. Underlying wound bed revealed viable tissue. Surrounding cellulitis noted , but no pus. Wound care provided further as per see surgeon recommendation. IV antibiotic continue as per ID specialist. Wound culture revealed E. coli and staphylococci aureus. Blood culture were negative. Renal parameters and electrolytes were closely monitored. Electrolytes corrected as needed. Patient was hydrated. Nephrotoxins were avoided. Blood pressure noted to be elevated. Patient started on nifedipine. Blood pressure subsequently stabilized. DVT and GI prophylaxis provided. Patient started on Flomax. Pain management addressed as needed. Hemoglobin A1c 7.0. Blood sugar remained stable. Diabetic diet provided. Patient was counseled on diabetic diet. Diabetic teaching provided. Patient was not aware of diabetes. Patient was advised to see primary care provider for initiation of anti- glycemic regimen. Lipid panel was stable. Anemia work-up revealed stable iron. Noted low folate . Patient started on folic acid replacement. Hemoglobin and hematocrit remained stable, prior to discharge hemoglobin 14.1, hematocrit 43.4. Patient remained afebrile, no leukocytosis. Patient was on IV antibiotic while in the hospital, and switched to oral/Keflex to complete the course for additional 5 days. Patient clinically stabilized and was ready for discharge home. Patient will need initiation of anti-glycemic regimen as outpatient . FINAL DIAGNOSES: Left leg ulcer stage IV with surrounding cellulitis Status post bedside debridement 02/28 Renal failure, acute on chronic Hypertension Diabetes mellitus, likely newly diagnosed DISCHARGE MEDICATIONS: See Medication Reconciliation list. DISCHARGE INSTRUCTIONS: Patient was discharged home Follow up with primary care provider in one week for initiation of anti- glycemic regimen. I have been assigned to dictate discharge summary for this account. I was not involved in the patient's management. Kim Ross NP Mar 04, 2019 09:48
--- NOTE | 2019-03-04 11:29 | Diagnostic Imaging Report ---
APPROVED REPORT CPT Code: 33045 Present Symptoms Comments: Pain Left leg ulcer BILATERAL: Imaging reveals a patent deep venous system bilaterally. There is no evidence of thrombus within the femoral, popliteal or tibial segments. The greater saphenous veins are also within normal limits. Doppler indicates normal spontaneous flow within these segments.
== END 2019-03-03 19:02 | disposition home or self-care (01) | DRG 364 ==
LOC: EMR 12:50 → 4E 15:07 → EDBEDREQ 17:11 → 4E 18:30
PROC: 0JDP0ZZ Extraction of Left Lower Leg Subcutaneous Tissue and Fascia, Open Approach (ICD-10-PCS; principal; 2019-03-01)
DX: L03.116 Cellulitis of left lower limb (principal); N17.9 Acute kidney failure, unspecified; I96 Gangrene, not elsewhere classified; L97.929 Non-pressure chronic ulcer of unspecified part of left lower leg with unspecified severity; B96.89 Other specified bacterial agents as the cause of diseases classified elsewhere; E11.9 Type 2 diabetes mellitus without complications; D64.9 Anemia, unspecified; L02.416 Cutaneous abscess of left lower limb; E86.0 Dehydration; I12.9 Hypertensive chronic kidney disease with stage 1 through stage 4 chronic kidney disease, or unspecified chronic kidney disease; N18.9 Chronic kidney disease, unspecified; Z86.718 Personal history of other venous thrombosis and embolism; Z79.01 Long term (current) use of anticoagulants
CPT/HCPCS: 36415; 80048; 80053; 80061; 80202; 80307; 81001; 82607; 82728; 82746; 82977; 83036; 83540; 83550; 83605; 83735; 83880; 84100; 84443; 84550; 85025; 86140; 87040; 87070; 87081; 87181; 87205; 93970; 94664; 96361; 96365; 96368; 99285

== ENCOUNTER 2019-03-06 09:26 | Emergency (ER) | payer MEDICAID, OTHER ==
[~2019-03-06] VITALS: Ht 203.2 cm; Wt 113.4 kg
[~2019-03-06 09:26] MED LIST: AMBIEN10 M1 ORAL; ATORVASTATIN CA20 MG ORAL; FAMOTIDINE20 MG ORAL; HALOPERIDOL1 MG ORAL; LISINOPRIL2.5 MG ORAL; MIRTAZAPINE15 MG ORAL
[2019-03-06] MEDS ORDERED: UNOBMED (09:33)
--- NOTE | 2019-03-06 09:49 | NUR ---
ED Nurse Note: Pt came in from home for wound dressing, open wound on L lower leg. Wound around 3cm width, 5cm length. Unapproximate border. Wound x 1 month, was hospitalized [place] [facility] [place] does not complain of pain asuncion. Vital signs stable asuncion. Will cont to monitor.
[2019-03-06 09:51] VITALS: BP 131/70
[2019-03-06 10:21] VITALS: BP 131/70
--- NOTE | 2019-03-06 10:22 | NUR ---
ER DISCHARGE NOTE: Patient is cleared to be discharged per ERMD, pt is aox4, on room air, with stable vital signs. pt was given dc instructions, pt was able to verbalize understanding, pt id band removed. pt is able to ambulate with steady gait. pt took all belongings.
--- NOTE | 2019-03-07 07:14 | Emergency Room Report ---
History of Present Illness General Chief Complaint: Wound Recheck/Suture Removal Source: Patient, Medical Record Present Illness HPI 48-year-old male presents ED for evaluation. Patient is here for wound check and dressing change. Has a ulcer on his left leg. Was admitted here for this problem and subsequently discharged 2 days ago. States that he was supposed to see wound care today but they are closed because of the holiday. Patient denies any pain. Denies any fevers or chills. States that the wound does appear improved compared to admission. No other aggravating relieving factors. Denies any other associated symptoms Allergies: Coded Allergies: No Known Allergies (Unverified , 02/27/19) Patient History Past Medical History: HTN, other - leg ulcer Past Surgical History: none Pertinent Family History: none Social History: Denies: smoking, alcohol use, drug use Immunizations: UTD Reviewed Nursing Documentation: PMH: Agreed; PSxH: Agreed Nursing Documentation-PMH Past Medical History: No History, Except For Hx Cardiac Problems: Yes - leg ulcer Hx Hypertension: Yes Hx Cancer: No Hx Gastrointestinal Problems: No Hx Neurological Problems: No Review of Systems All Other Systems: negative except mentioned in HPI Physical Exam Vital Signs Date Time Temp Pulse Resp B/P (MAP) Pulse Ox O2 Delivery O2 Flow Rate FiO2 03/06/19 09:30 98.1 96 18 134/89 (104) 97 Room Air Sp02 EP Interpretation: reviewed, normal General Appearance: no apparent distress, alert, GCS 15, non-toxic Head: normocephalic Eyes: bilateral eye normal inspection, bilateral eye PERRL ENT: normal ENT inspection Neck: normal inspection Respiratory: normal inspection Cardiovascular #1: normal inspection Gastrointestinal: normal inspection Rectal: deferred Genitourinary: no CVA tenderness Musculoskeletal: back normal, gait/station normal, normal range of motion, non- tender Neurologic: alert, oriented x3, responsive, motor strength/tone normal, sensory intact, speech normal Psychiatric: judgement/insight normal, memory normal, mood/affect normal, no suicidal/homicidal ideation Skin: Decubitus/Ulcer - healing 5x3cm ulcer to L medial calf Lymphatic: normal inspection Medical Decision Making Diagnostic Impression: Primary Impression: Wound of left ankle Qualified Codes: S91.002S - Unspecified open wound, left ankle, sequela Additional Impression: Encounter for wound re-check ER Course Hospital Course 48-year-old M presents to ED for wound check. recently admitted for treatment of ulcer to L leg Clinical course Patient placed on stretcher. Her initial history physical exam reveals middle- aged male in no acute distress. Dressings were removed which revealed a healing ulcer on the medial aspect of the left lower extremity. No surrounding erythema or induration. No fluctuance or discharge. On admission patient was evaluated by Dr. Lake; I discussed findings with him. Agreed that wound appears to be healing. He recommends wet-to-dry dressings and to provide him with enough supplies until he can be seen by wound care next week. Dressing changed. Discussed findings with patient. Safe for discharge for close outpatient follow-up Diagnosis -wound of left ankle, encounter for wound re-check Stable and discharged to home. continue wet to dry dressings BID. Followup with wound care/surgery Return to ED if any signs of infection develop Last Vital Signs Date Time Temp Pulse Resp B/P (MAP) Pulse Ox O2 Delivery O2 Flow Rate FiO2 03/06/19 10:21 98.1 79 18 131/70 99 Room Air Status: improved Disposition: HOME, SELF-CARE Condition: Stable Referrals: Jem Lake NON PHYSICIAN (PCP) Patient Instructions: Wound Check Additional Instructions: continue wet to dry dressings twice daily. followup with surgery Eric Nunez MD Mar 07, 2019 07:14
== END 2019-03-06 10:22 | disposition home or self-care (01) ==
LOC: EMR 09:51
DX: S91.002S Unspecified open wound, left ankle, sequela (principal); I10 Essential (primary) hypertension; Z76.89 Persons encountering health services in other specified circumstances; X58.XXXS Exposure to other specified factors, sequela
CPT/HCPCS: 99281

== ENCOUNTER 2019-03-08 10:52 | Emergency (ER) | payer MEDICAID, OTHER ==
[~2019-03-08] VITALS: Ht 203.2 cm; Wt 113.4 kg
[~2019-03-08 10:52] MED LIST changes: +UNOBMED
[2019-03-08 11:11] VITALS: BP 153/107
--- NOTE | 2019-03-08 11:12 | NUR ---
ED Nurse Note: pt walked in to ED for dressing change. has appointment with wound care on Mon. AAO x4 respirations even and non-labored noted. will wait for the further order.
[2019-03-08] MEDS ORDERED: CEPHALEXIN500 MG ORAL (11:19)
[2019-03-08] MEDS ORDERED: NORCO 5-325 TA1 EACH ORAL (11:19)
[2019-03-08 11:23] VITALS: BP 153/107
--- NOTE | 2019-03-08 11:24 | NUR ---
ER DISCHARGE NOTE: Patient is cleared to be discharged per ERMD, pt is aox4, on room air, with stable vital signs. pt was given dc and prescription instructions, pt was able to verbalize understanding, pt id band removed. pt is able to ambulate with steady gait by using crutches. pt took all belongings.
--- NOTE | 2019-03-08 12:35 | Emergency Room Report ---
History of Present Illness General Chief Complaint: Skin Rash/Abscess Source: Patient Present Illness HPI 48-year-old male presents ED for evaluation. Is here for evaluation of a wound to his left leg. Was admitted here for treatment of this wound to his left leg. Is currently scheduled to be seen by wound care tomorrow. States he is having increased pain around the wound site. Throbbing, 7 out of 10, nonradiating. States it is difficult to walk because of the pain. Denies any fevers or chills. Denies any discharge. No other aggravating relieving factors. Denies any other associated symptoms Allergies: Coded Allergies: No Known Allergies (Unverified , 02/27/19) Patient History Past Medical History: HTN, other - leg ulcer Past Surgical History: none Pertinent Family History: none Social History: Denies: smoking, alcohol use, drug use Immunizations: UTD Reviewed Nursing Documentation: PMH: Agreed; PSxH: Agreed Nursing Documentation-PMH Past Medical History: No History, Except For Hx Cardiac Problems: Yes - leg ulcer Hx Hypertension: Yes Hx Cancer: No Hx Gastrointestinal Problems: No Hx Neurological Problems: No Review of Systems All Other Systems: negative except mentioned in HPI Physical Exam Vital Signs Date Time Temp Pulse Resp B/P (MAP) Pulse Ox O2 Delivery O2 Flow Rate FiO2 03/08/19 10:55 98.1 79 17 153/107 (122) 98 Room Air Sp02 EP Interpretation: reviewed, normal General Appearance: no apparent distress, alert, GCS 15, non-toxic Head: normocephalic Eyes: bilateral eye normal inspection, bilateral eye PERRL ENT: normal ENT inspection Neck: normal inspection Respiratory: normal inspection Cardiovascular #1: normal inspection Gastrointestinal: normal inspection Rectal: deferred Genitourinary: no CVA tenderness Musculoskeletal: back normal, gait/station normal, normal range of motion, tender - LLE Neurologic: alert, oriented x3, responsive, motor strength/tone normal, sensory intact, speech normal Psychiatric: normal inspection Skin: other - 5x3cm ulcer to medial aspect LLE. minimal surrounding erythema/ induration Lymphatic: normal inspection Medical Decision Making Diagnostic Impression: Primary Impression: Encounter for wound re-check ER Course Hospital Course 48-year-old M presents to ED for wound check. pain surrounding ulcer site on LLE Clinical course Patient placed on stretcher.. On exam there is a 5 x 3 cm ulceration to the medial aspect of the left leg. There is some minimal surrounding erythema and induration. No fluctuance or discharge. I saw patient 2 days ago for dressing change and wound appears unchanged. Wet-to-dry dressing applied. Given crutches. Will prescribe antibiotics and stronger pain medications. States he will follow-up with wound care as scheduled Diagnosis - encounter for wound re-check, Stable and discharged to home with Rx [place], Keflex. wet to dry dressings BID. Followup with surgery/woundcare. Return to ED if any signs of infection develop Last Vital Signs Date Time Temp Pulse Resp B/P (MAP) Pulse Ox O2 Delivery O2 Flow Rate FiO2 03/08/19 11:23 98.1 79 17 153/107 98 Room Air Status: improved Disposition: HOME, SELF-CARE Condition: Stable Scripts Cephalexin* (KEFLEX*) 500 Mg Capsule 500 MG ORAL EVERY 6 HOURS for 7 Days, CAP Prov: Eric Nunez MD 03/08/19 Hydrocodone Bit/Acetaminophen 5-325* (NORCO 5-325*) 1 Each Tablet 1 TAB ORAL Q6H PRN for For Pain, #10 TAB 0 Refills Prov: Eric Nunez MD 03/08/19 Referrals: Jem Lake Patient Instructions: Wound Check Eric Nunez MD Mar 08, 2019 12:35
== END 2019-03-08 11:25 | disposition home or self-care (01) ==
LOC: EMR 11:09
DX: L97.829 Non-pressure chronic ulcer of other part of left lower leg with unspecified severity (principal); I10 Essential (primary) hypertension
CPT/HCPCS: 99282

== ENCOUNTER 2019-06-19 11:47 | Emergency (ER) | payer OTHER ==
[~2019-06-19] VITALS: Ht 203.2 cm; Wt 118.8 kg
[~2019-06-19 11:47] MED LIST changes: +CEPHALEXIN500 MG ORAL; +NORCO 5-325 TA1 EACH ORAL
[2019-06-19] MEDS ORDERED: BUPROPION XL300 MG ORAL (11:58)
[2019-06-19] MEDS ORDERED: XARELTO10 MG ORAL (11:58)
--- NOTE | 2019-06-19 12:00 | NUR ---
ED Nurse Note: Patient walked into ED with a wound located on his lower left leg, wound is about 4 inches in length and is black in color. rates his pain a 5/10 pain. states that initially his lower left leg was healing however has been unable to continually follow up with wound care nurse and has gotten progressively bigger, the skin on his foot bilaterally is dusky and ashy in appearance, patient is stil able to feel sensation on skin. will wait for further orders
[2019-06-19] MEDS ORDERED: Bacitracin Oint UD TOPIC ONE (12:30)
[2019-06-19] MEDS ORDERED: Tetanus/Diptheria/Pertussis IM ONE (12:30)
[2019-06-19 13:08] VITALS: BP 153/103
[2019-06-19 13:30] LABS: APPEARANCE,URINE CLEAR; BILIRUBIN, URINE NEGATIVE (NEGATIVE); COLOR,URINE PALE YELLOW; GLUCOSE, URINE (UA) NEGATIVE (NEGATIVE); KETONES,URINE NEGATIVE (NEGATIVE); LEUKOCYTE ESTERASE ,URINE NEGATIVE (NEGATIVE); NITRITE,URINE NEGATIVE (NEGATIVE); PH,URINE 6.5 (4.5-8.0); PROTEIN,URINE NEGATIVE (NEGATIVE); UROBILINOGEN,URINE NORMAL MG/DL (0.0-1.0)
[2019-06-19 13:31] LABS: BASOPHILS % (AUTO) 2.4 % (0.0-2.0); EOSINOPHILS % (AUTO) 8.9 % (0.0-3.0); HEMATOCRIT 43.8 % (42.0-52.0); HEMOGLOBIN 14.2 G/DL (14.2-18.0); LYMPHOCYTES % (AUTO) 35.6 % (20.0-45.0); MEAN CORPUSCULAR VOLUME 84 FL (80-99); MONOCYTES % (AUTO) 5.7 % (1.0-10.0); NEUTROPHILS % (AUTO) 47.3 % (45.0-75.0); PLATELET COUNT 263 K/UL (150-450); RED BLOOD COUNT 5.19 M/UL (4.70-6.10); RED CELL DISTRIBUTION WIDTH 13.6 % (11.6-14.8); WHITE BLOOD COUNT 5.9 K/UL (4.8-10.8)
[2019-06-19 13:43] LABS: INR 1.3 (0.9-1.1)
[2019-06-19 13:46] LABS: ANION GAP 6 mmol/L (5-15); BLOOD UREA NITROGEN 9 mg/dL (7-18); CALCIUM 9.1 MG/DL (8.5-10.1); CARBON DIOXIDE 30 MMOL/L (21-32); CHLORIDE 104 MMOL/L (98-107); CREATININE 1.4 MG/DL (0.55-1.30); POTASSIUM 4.1 MMOL/L (3.5-5.1); SODIUM 140 MMOL/L (136-145)
--- NOTE | 2019-06-19 13:50 | NUR ---
ED Nurse Note: retail salesworker, Aleyda at bedside.
[2019-06-19 13:51] LABS: ALANINE AMINOTRANSFERASE 23 U/L (12-78); ALBUMIN 4.1 G/DL (3.4-5.0); ALBUMIN/GLOBULIN RATIO 0.9 (1.0-2.7); ALKALINE PHOSPHATASE 89 U/L (46-116); ASPARTATE AMINO TRANSFERASE 20 U/L (15-37); BILIRUBIN,TOTAL 0.4 MG/DL (0.2-1.0); CREATINE KINASE 327 U/L (26-308)
--- NOTE | 2019-06-19 14:25 | Emergency Room Report ---
History of Present Illness General Chief Complaint: Wound Recheck/Suture Removal Source: Patient Present Illness HPI The patient was sent by his social work case manager for wound reevaluation. He had been treated for cellulitis in January and has had 2 subsequent wound checks. He states that the wound is improving according to him. He is not taking antibiotics at this time. He denies fevers or chills. He says he rarely has drainage. There is no redness of the skin. The scab is turning dark brown which he thinks is an improvement. He rates the pain 5/10, aching nonradiating and worse when he stands. He states when he was discharged he went for wound care at this facility and they told him they could not perform this due to his insurance. He had DVT. He is taking anticoagulants at this time. He denies calf pain or edema. There was a question of diabetes however he is not taking medication at this time. He denies polyuria or polydipsia. Is a history of hypertension and is on medications. No sore throat, chest pain, palpitations, nausea, vomiting, diarrhea, dysuria, abdominal pain, shortness of breath, depression, anxiety, visual changes, headache. The patient was admitted in January of this year. Discharge diagnoses: Left leg ulcer stage IV with surrounding cellulitis Status post bedside debridement 02/28 Renal failure, acute on chronic Hypertension Diabetes mellitus, likely newly diagnosed Allergies: Coded Allergies: No Known Allergies (Unverified , 02/27/19) Patient History Past Medical History: see triage record, old chart reviewed Social History: Denies: smoking Social History Narrative From home Reviewed Nursing Documentation: PMH: Agreed; PSxH: Agreed Nursing Documentation-PM Past Medical History: No History, Except For Hx Cardiac Problems: Yes - leg ulcer Hx Hypertension: Yes Hx Cancer: No Hx Gastrointestinal Problems: No Hx Neurological Problems: No Review of Systems All Other Systems: negative except mentioned in HPI Physical Exam Vital Signs Date Time Temp Pulse Resp B/P (MAP) Pulse Ox O2 Delivery O2 Flow Rate FiO2 06/19/19 11:52 97.3 73 18 153/103 (120) 98 Room Air Sp02 EP Interpretation: reviewed, normal General Appearance: well appearing, no apparent distress, GCS 15 Head: normocephalic Eyes: bilateral eye normal inspection, bilateral eye PERRL ENT: moist mucus membranes Neck: supple Respiratory: lungs clear, normal breath sounds Cardiovascular #1: regular rate, rhythm, no edema Cardiovascular #2: 2+ radial (R), 2+ dorsalis pedis (R), 2+ dorsalis pedis (L) Gastrointestinal: normal inspection, normal bowel sounds, non tender, no mass, non-distended Genitourinary: no CVA tenderness Musculoskeletal: back normal, gait/station normal, normal range of motion, no calf tenderness, David's Sign negative, other - Girth of left calf slightly larger than right calf Neurologic: alert, oriented x3, grossly normal Psychiatric: mood/affect normal Skin: warm/dry, other - Ulcer medial lower tibia above ankle approximately 6 x 4 cm without surrounding erythema Medical Decision Making Diagnostic Impression: Primary Impression: Ulcer of left lower leg Qualified Codes: L97.929 - Non-pressure chronic ulcer of unspecified part of left lower leg with unspecified severity Additional Impression: Renal insufficiency ER Course Patient presents with ulcer recheck left lower leg. Differential includes osteomyelitis, cellulitis, resolving diabetic or venous ulcer amongst others. Clinically the patient does not have a DVT at this time. He is taking Xarelto. Evaluation with EKG, tib-fib films and labs. The patient is treated with Tylenol and bacitracin. EKG sinus rhythm left axis deviation LVH. Tib-fib films without osteomyelitis. Labs significant for normal white count, creatinine 1.4, minimally elevated sed rate and negative lactate and troponin. Social service consult was obtained to determine where he might undergo wound care. youth services librarian states capitated at [facility]. Discussed treatment plan with patient. Patient stable for outpatient observation and treatment. Laboratory Tests Test 06/19/19 12:55 White Blood Count 5.9 K/UL (4.8-10.8) Red Blood Count 5.19 M/UL (4.70-6.10) Hemoglobin 14.2 G/DL (14.2-18.0) Hematocrit 43.8 % (42.0-52.0) Mean Corpuscular Volume 84 FL (80-99) Mean Corpuscular Hemoglobin 27.4 PG (27.0-31.0) Mean Corpuscular Hemoglobin Concent 32.4 G/DL (32.0-36.0) Red Cell Distribution Width 13.6 % (11.6-14.8) Platelet Count 263 K/UL (150-450) Mean Platelet Volume 6.7 FL (6.5-10.1) Neutrophils (%) (Auto) 47.3 % (45.0-75.0) Lymphocytes (%) (Auto) 35.6 % (20.0-45.0) Monocytes (%) (Auto) 5.7 % (1.0-10.0) Eosinophils (%) (Auto) 8.9 % (0.0-3.0) H Basophils (%) (Auto) 2.4 % (0.0-2.0) H Erythrocyte Sedimentation Rate Pending Prothrombin Time 13.5 SEC (9.30-11.50) H Prothrombin Time INR 1.3 (0.9-1.1) H PTT 36 SEC (23-33) H Urine Color Pale yellow Urine Appearance Clear Urine pH 6.5 (4.5-8.0) Urine Specific [place] 1.005 (1.005-1.035) Urine Protein Negative (NEGATIVE) Urine Glucose (UA) Negative (NEGATIVE) Urine Ketones Negative (NEGATIVE) Urine Blood Negative (NEGATIVE) Urine Nitrite Negative (NEGATIVE) Urine Bilirubin Negative (NEGATIVE) Urine Urobilinogen Normal MG/DL (0.0-1.0) Urine Leukocyte Esterase Negative (NEGATIVE) Sodium Level 140 MMOL/L (136-145) Potassium Level 4.1 MMOL/L (3.5-5.1) Chloride Level 104 MMOL/L (98-107) Carbon Dioxide Level 30 MMOL/L (21-32) Anion Gap 6 mmol/L (5-15) Blood Urea Nitrogen 9 mg/dL (7-18) Creatinine 1.4 MG/DL (0.55-1.30) H Estimate Glomerular Filtration Rate > 60 mL/min (>60) Glucose Level 95 MG/DL (74-106) Lactic Acid Level 0.70 mmol/L (0.4-2.0) Calcium Level 9.1 MG/DL (8.5-10.1) Magnesium Level 2.1 MG/DL (1.8-2.4) Total Bilirubin 0.4 MG/DL (0.2-1.0) Aspartate Amino Transferase (AST) 20 U/L (15-37) Alanine Aminotransferase (ALT) 23 U/L (12-78) Alkaline Phosphatase 89 U/L (46-116) Total Creatine Kinase 327 U/L (26-308) H Troponin I 0.000 ng/mL (0.000-0.056) Total Protein 8.7 G/DL (6.4-8.2) H Albumin 4.1 G/DL (3.4-5.0) Globulin 4.6 g/dL Albumin/Globulin Ratio 0.9 (1.0-2.7) L EKG Diagnostic Results Rate: normal Rhythm: NSR ST Segments: no acute changes Rhythm Strip Diag. Results EP Interpretation: yes Rhythm: NSR, no PVC's, no ectopy Other X-Ray Diagnostic Results Other X-Ray Diagnostic Results : X-Ray ordered: Left tib-fib # of Views/Limited Vs Complete: 4 View Indication: Other EP Interpretation: Yes Interpretation: no dislocation, no soft tissue swelling, no fractures Impression: No acute disease Electronically Signed by: Electronically signed by Manjinder Gomez MD Last Vital Signs Date Time Temp Pulse Resp B/P (MAP) Pulse Ox O2 Delivery O2 Flow Rate FiO2 06/19/19 15:40 97.3 70 18 135/88 98 Room Air Status: improved Disposition: HOME, SELF-CARE Condition: Improved Scripts Bacitracin (Bacitracin) 28.4 Gm Oint...g. 1 APPLIC TOPIC BID, #30 GM Prov: Manjinder Gomez MD 06/19/19 Manjinder Gomez MD Jun 19, 2019 14:25
--- NOTE | 2019-06-19 14:47 | NUR ---
Social Work This SW received a consult, due to patient is not capitated to this hospital for wound care. This Sw met with patient to inform that his insurance is capitated to [facility], will need to follow up with his primary, Dr. Kal Saunders ([phone]). This Sw arranged a follow appointment on the follow date: 06/29/2019 10 AM [id number] [facility] Patient expressing understanding and will follow up with primary. Dr. Saunders will contact patient if there are any cancellations (so that patient can be seen sooner, if able). Patient informed.
--- NOTE | 2019-06-19 14:48 | Diagnostic Imaging Report ---
Indication: Pain and leg wound Technique: XRAY Leg Lower Tib Fib 2v L Comparison: 02/27/2019 Findings: Bone mineralization within normal limits. There is no evidence of acute fracture or dislocation. No focal osteopenia, para sinus or bony erosion is identified to suggest an acute osteomyelitis. More sensitive evaluation can be made with MRI as clinically indicated. There is soft tissue swelling with possible wound involving the medial soft tissues of the/distal leg. Correlation with physical exam is recommended. No radiopaque foreign body. Impression: * Soft tissue swelling and possible ulcer involving the medial soft tissues of the distal leg. Correlation with physical exam recommended. * No evidence of acute fracture or dislocation. * No radiographic evidence to suggest acute osteomyelitis.
[2019-06-19] MEDS ORDERED: BACITRACIN15 GM TOPIC (15:15)
[2019-06-19 15:40] VITALS: BP 135/88
--- NOTE | 2019-06-19 15:40 | NUR ---
ER DISCHARGE NOTE: Patient is cleared to be discharged per ERMD, pt is aox4, on room air, with stable vital signs. pt was given dc and prescription instructions, pt was able to verbalize understanding, pt id band and iv site removed without complications. pt is able to ambulate with steady gait. pt took all belongings.
== END 2019-06-19 15:40 | disposition home or self-care (01) ==
LOC: EMR 15:06
DX: L97.929 Non-pressure chronic ulcer of unspecified part of left lower leg with unspecified severity (principal); N28.9 Disorder of kidney and ureter, unspecified; I10 Essential (primary) hypertension; E11.9 Type 2 diabetes mellitus without complications; Z86.718 Personal history of other venous thrombosis and embolism; Z79.01 Long term (current) use of anticoagulants; Z23 Encounter for immunization
CPT/HCPCS: 36415; 80053; 81003; 82550; 83605; 83735; 84484; 85025; 85610; 85651; 85730; 90471; 90715; 99284

== ENCOUNTER 2020-08-11 14:09 | Emergency (ER) | payer MEDICAID, OTHER ==
[~2020-08-11] VITALS: Ht 203.2 cm; Wt 104.3 kg
[~2020-08-11 14:09] MED LIST changes: +BACITRACIN15 GM TOPIC; +BUPROPION XL300 MG ORAL; +XARELTO10 MG ORAL
[2020-08-11 14:30] VITALS: BP 135/87
[2020-08-11] MEDS ORDERED: [UNRECOGNIZED DRUG - OTHER] TP (15:03)
[2020-08-11] MEDS ORDERED: [UNRECOGNIZED DRUG - SUPPLY] TP (15:03)
--- NOTE | 2020-08-11 15:40 | Emergency Room Report ---
History of Present Illness General Chief Complaint: Skin Rash/Abscess Source: Patient Present Illness HPI 50 YO male with hx of HTN and previous venous stasis ulcers presents to the ED c/o recurrence of his left ankle ulcer. Pt. reports skin break down. He denies pain. He reports frequently running for exercise and suspects his socks may be attributing to his symptoms. Pt. reports previous ulcer in the same area. He denies suspicion of infection. Pt. denies erythema or warmth. He denies discharge. He reports he is currently working to receive wound care. He reports having a DVT in the past. He denies swelling. He denies hx of DM and reports his PCP told him he is "pre-diabetic" He denies fevers, chills, ESTEVEZ, dizziness, polydipsia or poly urea. He denies calf pain. Allergies: Coded Allergies: No Known Allergies (Unverified , 02/27/19) COVID-19 Screening Contact w/high risk pt: No Experienced COVID-19 symptoms?: No COVID-19 Testing performed CERTIFIED PHYSICIAN'S ASSISTANT: No Patient History Past Medical History: see triage record Past Surgical History: none Pertinent Family History: none Reviewed Nursing Documentation: PMH: Agreed; PSxH: Agreed Nursing Documentation-PMH Past Medical History: No Stated History Hx Cardiac Problems: Yes - leg ulcer Hx Hypertension: Yes Hx Cancer: No Hx Gastrointestinal Problems: No Hx Neurological Problems: No Review of Systems All Other Systems: negative except mentioned in HPI Physical Exam Vital Signs Date Time Temp Pulse Resp B/P (MAP) Pulse Ox O2 Delivery O2 Flow Rate FiO2 08/11/20 14:18 98.4 70 20 135/87 (103) 97 Room Air Sp02 EP Interpretation: reviewed, normal General Appearance: no apparent distress, alert, GCS 15, non-toxic Head: normocephalic, atraumatic Eyes: bilateral eye normal inspection, bilateral eye PERRL ENT: hearing grossly normal, normal voice Neck: full range of motion Respiratory: lungs clear, normal breath sounds, speaking full sentences Cardiovascular #1: regular rate, rhythm, no edema, normal capillary refill Cardiovascular #2: 1+ dorsalis pedis (R), 1+ dorsalis pedis (L) Musculoskeletal: normal range of motion, gait/station normal, non-tender Neurologic: alert, motor strength/tone normal, oriented x3, sensory intact, responsive, speech normal Psychiatric: judgement/insight normal Skin: other - 2.5 x 1.5cm area of skin break down that is not through all layers of the skin on the medial left calf. No erythema or warmth, no pus. some granulation tissue is noted. Lymphatic: no adenopathy Medical Decision Making PA Attestation Dr. Gomez Is my supervising Physician whom patient management has been discussed with. Diagnostic Impression: Primary Impression: Encounter for wound re-check Additional Impression: Wound of left ankle Qualified Codes: S91.002A - Unspecified open wound, left ankle, initial encounter ER Course 50 YO male with hx of HTN and previous venous stasis ulcers presents to the ED c/o recurrence of his left ankle ulcer. Pt. reports skin break down. He denies pain. He reports frequently running for exercise and suspects his socks may be attributing to his symptoms. Pt. reports previous ulcer in the same area. He denies suspicion of infection. Pt. denies erythema or warmth. He denies discharge. He reports he is currently working to receive wound care. He reports having a DVT in the past. He denies swelling. He denies hx of DM and reports his PCP told him he is "pre-diabetic" He denies fevers, chills, ESTEVEZ, dizziness, polydipsia or poly urea. He denies calf pain. Ddx considered but are not limited to cellulitis, abscess, venous stasis ulcer, osteomyelitis, hyperglycemia just to name a few. Vital signs: are WNL, pt. is afebrile H&PE are most consistent with venous stasis ulcer without evidence of secondary infection. ORDERS: none required at this time, the diagnosis is clinical ED INTERVENTIONS: -Wound examined -Sterile dressing applied. -D/w pt. to continue to look for signs of infection . DISCHARGE: At this time pt. is stable for d/c to home. Will provide printed patient care instructions, and any necessary prescriptions. Care plan and follow up instructions have been discussed with the patient prior to discharge. Last Vital Signs Date Time Temp Pulse Resp B/P (MAP) Pulse Ox O2 Delivery O2 Flow Rate FiO2 08/11/20 14:18 98.4 70 20 135/87 (103) 97 Room Air Disposition: HOME, SELF-CARE Condition: Stable Scripts Polyquaternium-6/Gauze Bandage (Bioguard Gauze Roll 4.5"X4.1yd) 1 Each Bandage EACH TP TIWM for venous stasis ulcer, #3 Prov: Montserrat Campbell 08/11/20 Petrolatum,White (PETROLATUM GAUZE) 1 Each Bandage EACH TP 3XW for Venous stasis ulcer, #15 Prov: Montserrat Campbell 08/11/20 Referrals: [facility],REFERRING (PCP) Patient Instructions: Venous Stasis or Chronic Venous Insufficiency Additional Instructions: Take medications as directed. Follow up with a Primary Care Provider in 3-5 days, even if your symptoms have resolved. Return sooner to ED if new symptoms occur, or current symptoms become worse. - Please note that this Emergency Department Report was dictated using [employer] business intelligence technology software, occasionally this can lead to erroneous entry secondary to interpretation by the dictation equipment. Montserrat Campbell Aug 11, 2020 15:40
[2020-08-11] MEDS ORDERED: Tetanus/Diptheria/Pertussis IM ONE (16:00)
[2020-08-11 16:08] VITALS: BP 138/88
== END 2020-08-11 16:08 | disposition home or self-care (01) ==
LOC: EMR 14:40
DX: S91.002A Unspecified open wound, left ankle, initial encounter (principal); X58.XXXA Exposure to other specified factors, initial encounter; Y93.9 Activity, unspecified; Y92.9 Unspecified place or not applicable; I10 Essential (primary) hypertension
CPT/HCPCS: 90471; 90715; Z7502; 99283